=== PATIENT | female | born 1925 | race Caucasian/White ===

== ENCOUNTER 2016-08-05 11:09 | Observation (INO) | payer MEDICARE ==
[2016-08-05] VITALS (9 sets, daily range): BP systolic 158–199; BP diastolic 63–104; PULSE 60–77; RESP 16–24; TEMP 97.7–98.6; O2SAT 93–98
[~2016-08-05] VITALS: Ht 154.9 cm; Wt 81.9 kg
[~2016-08-05 11:09] MED LIST: ASPI1TAB69 PO; ATOR40TA16 PO; CARV12.5 PO; CLOP75TA PO; FURO40TA PO; ISOS60TA PO; NITR0.4S SL; OMEGCAP PO; POTA-163 PO; PREV30CA11 PO
[2016-08-05] MEDS ORDERED: RESP: ALBUTEROL 2.5 MG/IPRATROPIUM 0.5 MG NEB (SCH) INH ONE (11:30)
[2016-08-05] MEDS ORDERED: methylPREDNISolone SOD SUCC 125 MG/2 ML VIAL IVP ONE (11:30)
--- NOTE | 2016-08-05 11:49 | PD ---
HPI Chief Complaint: Respiratory Symptoms Time Seen by Provider: 11:46 Travel History International Travel<30 days: No Contact w/Intl Traveler<30days: No Traveled to known affect area: No History of Present Illness HPI 89-year-old female that presents to the ED for evaluation of respiratory symptoms. Per patient she's been having cough and congestion as well as generalized weakness worse for the past 3 days but per family members she's had it for about a week. She states that she is coughing up green sputum. She denies any sick contacts. She does have a history of COPD and pneumonia in the past. She also uses inhalers. She has a history of heart disease. She states having some chest pressure on her chest. Denies any recent travel. No abdominal pain. Nausea or vomiting. No bowel movement or urinary issues. Per patient she has congestion in her face as well. Per family members she initially stated that she had weakness of her legs and that is when all the symptoms started. She apparently went to an urgent care and was given azithromycin with minimal relief. PFSH Past Medical History Hx Anticoagulant Therapy: Yes Arthritis: Yes Asthma: No Autoimmune Disease: No Anxiety: No Depression: No Heart Rhythm Problems: Yes (av block) Cancer: No Cardiac Catheterization: Yes (2013) Cardiovascular Problems: Yes High Cholesterol: Yes Chest Pain: Yes COPD: No Cerebrovascular Accident: No Coronary Artery Disease: Yes Diminished Hearing: Yes Endocrine: No Gastrointestinal Disorders: Yes (PT STATE THAT SHE HAS REFLUX) GERD: Yes Glaucoma: No Genitourinary: Yes (urgency) Headaches: Yes Hepatitis: No Hiatal Hernia: Yes Hypertension: Yes Immune Disorder: No Medical other: Yes (REFLUX) Musculoskeletal: Yes Neurologic: Yes Psychiatric: No Reproductive: No Respiratory: Yes (copd) Immunizations Current: Yes Migraines: No Myocardial Infarction: Yes Renal Failure: No Seizures: No Sleep Apnea: No Thyroid Disease: No Ulcer: No Menopausal: Yes Past Surgical History Abdominal Surgery: No Cardiac Surgery: Yes (stent x 2.) Coronary Artery Bypass Graft: No Coronary Stent: Yes (X 2 ON 01/12/14) Ear Surgery: No Endocrine Surgery: No Eye Surgery: Yes (BILAT CATARACTS) Genitourinary Surgery: No Gynecologic Surgery: Yes (HYSTERECTOMY) Hysterectomy: Yes Oral Surgery: Yes Thoracic Surgery: No Other Surgery: Yes Family History Family Myocardial Infarction: Yes Social History Alcohol Use: No Tobacco Use: No Substance Use: No Allergies-Medications (Allergen,Severity, Reaction): Coded Allergies: Egg Allergy (Verified Allergy, Severe, DEATHLY ILL, 01/23/16) Adhesives (Verified Allergy, Intermediate, RASH;REDNESS, 01/23/16) Percocet (Verified Adverse Reaction, Intermediate, VOMITING, 01/23/16) Levaquin (Verified Adverse Reaction, Mild, 01/23/16) Lansoprazole (Verified Adverse Reaction, Unknown, DIZZINESS, 01/23/16) Reported Meds & Prescriptions Reported Meds & Active Scripts Active Isosorbide Mononitrate ER (Isosorbide Mononitrate) 60 Mg Tab 60 Mg PO DAILY@0700 Reported Clopidogrel (Clopidogrel Bisulfate) 75 Mg Tab 75 Mg PO DAILY Potassium Chloride ER (Potassium Chloride) 20 Meq Tab 20 Meq PO DAILY [place]-3 Fish Oil/Vitamin (Fish Oil-Cholecalciferol) 1,000-1,000 Mg Cap 1 Cap PO DAILY Prevacid (Lansoprazole) 30 Mg Capdr 30 Mg PO BID Furosemide 40 Mg Tab 40 Mg PO DAILY Coreg (Carvedilol) 12.5 Mg Tab 12.5 Mg PO BID Atorvastatin (Atorvastatin Calcium) 40 Mg Tab 40 Mg PO HS Aspirin 81 Mg Tabdr 81 Mg PO DAILY Nitrostat SL (Nitroglycerin) 0.4 Mg Subl 0.4 Mg SL DIRECTED PRN ONE TABLET UNDER THE TONGUE NEEDED FOR CHEST PAIN, MAY REPEAT EVERY FIVE MINUTES FOR A TOTAL OF 3 DOSES OR CALL 911 IF NO RELIEF Review of Systems Except as stated in HPI: all other systems reviewed are Neg Physical Exam Narrative GENERAL: Well-nourished, well-developed patient in no apparent distress. SKIN: Warm and dry. HEAD: Atraumatic. Normocephalic. EYES: Pupils equal and round reactive to light and accommodation. No scleral icterus. No injection or drainage. ENT: No nasal bleeding or discharge. Mucous membranes pink and moist. TMs are clear with no sign of infection or perforation. No mastoid tenderness. Ear canals are intact bilaterally. No lymphadenopathy. Nostril mucosa is red and moist with clear mucus noted. No sinus tenderness to palpation noted. Tonsils are not enlarged or swollen. No ulvua Deviation. Tongue is midline. NECK: Trachea midline. No JVD. No meningeal signs noted CARDIOVASCULAR: Regular rate and rhythm. RESPIRATORY: No accessory muscle use. Wheezings heard in the lower lung landa. Breath sounds equal bilaterally. GASTROINTESTINAL: Abdomen soft, non-tender, nondistended. Hepatic and splenic margins not palpable. MUSCULOSKELETAL: Extremities without clubbing, cyanosis, or edema. No obvious deformities. NEUROLOGICAL: Awake and alert. No obvious cranial nerve deficits. Motor grossly within normal limits. Five out of 5 muscle strength in the arms and legs. Normal speech. PSYCHIATRIC: Appropriate mood and affect; insight and judgment normal. Data Data Last Documented VS Vital Signs Date Time Temp Pulse Resp B/P Pulse Ox O2 Delivery O2 Flow Rate FiO2 08/05/16 11:44 95 21 08/05/16 11:33 65 20 Room Air 08/05/16 11:10 98.6 158/63 Orders Electrocardiogram (08/05/16 11:24) Complete Blood Count With Diff (08/05/16 11:24) Basic Metabolic Panel (Bmp) (08/05/16 11:24) Troponin I (08/05/16 11:24) B-Type Natriuretic Peptide (08/05/16 11:24) Blood Culture (08/05/16 11:24) Urinalysis - C+S If Indicated (08/05/16 11:24) Magnesium (Mg) (08/05/16 11:24) Chest, Single Ap (08/05/16 11:24) Iv Access Insert/Monitor (08/05/16 11:24) Ecg Monitoring (08/05/16 11:24) Oximetry (08/05/16 11:24) Influenzae A/B Antigen (08/05/16 11:24) Lactic Acid (08/05/16 11:24) Methylprednisolone So Succ Inj (Solumedr (08/05/16 11:30) Albuterol-Ipratropium Neb (Duoneb Neb) (08/05/16 11:30) Sodium Chlorid 0.9% 500 Ml Inj (Ns 500 M (08/05/16 13:00) Ceftriaxone Inj (Rocephin Inj) (08/05/16 12:47) Azithromycin Inj (Zithromax Inj) (08/05/16 12:47) Lactic Acid Sepsis Protocol (08/05/16 12:47) Place In Observation (08/05/16 ) Code Status (08/05/16 13:07) Vital Signs (Adult) Q4H (08/05/16 13:07) Activity Oob With Assistance (08/05/16 13:07) Program Director/Traffic Director / Telemetry .CONTINUOUS (08/05/16 13:07) Diet Heart Healthy (08/05/16 Lunch) Sodium Chloride 0.9% Flush (Ns Flush) (08/05/16 13:15) Sodium Chloride 0.9% Flush (Ns Flush) (08/05/16 21:00) Acetaminophen (Tylenol) (08/05/16 13:15) Ondansetron Inj (Zofran Inj) (08/05/16 13:15) Temazepam (Restoril) (08/05/16 13:15) Basic Metabolic Panel (Bmp) (08/06/16 06:00) Complete Blood Count With Diff (08/06/16 06:00) Pt Request For Service (08/05/16 13:07) Scd Bilateral/Knee High MARIA ELENA.BID (08/05/16 13:07) Naloxone Inj (Narcan Inj) (08/05/16 13:15) Magnesium Hydroxide Liq (Milk Of Magnesi (08/05/16 13:15) Albuterol-Ipratropium Neb (Duoneb Neb) (08/05/16 14:00) Albuterol-Ipratropium Neb (Duoneb Neb) (08/05/16 13:15) Ceftriaxone Inj (Rocephin Inj) (08/06/16 13:00) Azithromycin (Zithromax) (08/06/16 13:00) 1/2 Ns + Kcl 20 Meq Inj (1/2 Ns + Kcl 20 (08/05/16 15:00) Aspirin (Aspirin) (08/05/16 13:15) Nitroglycerin Sl (Nitrostat Sl) (08/05/16 13:15) Creatine Kinase (Cpk) (08/05/16 17:00) Creatine Kinase (Cpk) (08/05/16 23:00) Troponin I (08/05/16 17:00) Troponin I (08/05/16 23:00) Magnesium (Mg) (08/05/16 13:12) Electrocardiogram (08/05/16 17:00) Electrocardiogram (08/05/16 23:00) Scd Bilateral/Knee High MARIA ELENA.BID (08/05/16 13:12) Admit Order (Ed Use Only) (08/05/16 13:23) Labs Laboratory Tests Test 08/05/16 11:35 White Blood Count 6.8 TH/MM3 Red Blood Count 4.29 MIL/MM3 Hemoglobin 13.6 GM/DL Hematocrit 39.0 % Mean Corpuscular Volume 90.8 FL Mean Corpuscular Hemoglobin 31.6 PG Mean Corpuscular Hemoglobin 34.8 % Concent Red Cell Distribution Width 13.4 % Platelet Count 204 TH/MM3 Mean Platelet Volume 7.7 FL Neutrophils (%) (Auto) 67.1 % Lymphocytes (%) (Auto) 20.4 % Monocytes (%) (Auto) 6.1 % Eosinophils (%) (Auto) 5.7 % Basophils (%) (Auto) 0.7 % Neutrophils # (Auto) 4.5 TH/MM3 Lymphocytes # (Auto) 1.4 TH/MM3 Monocytes # (Auto) 0.4 TH/MM3 Eosinophils # (Auto) 0.4 TH/MM3 Basophils # (Auto) 0.0 TH/MM3 CBC Comment DIFF FINAL Differential Comment Sodium Level 142 MEQ/L Potassium Level 4.4 MEQ/L Chloride Level 107 MEQ/L Carbon Dioxide Level 25.9 MEQ/L Anion Gap 9 MEQ/L Blood Urea Nitrogen 13 MG/DL Creatinine 1.00 MG/DL Estimat Glomerular Filtration 52 ML/MIN Rate Random Glucose 221 MG/DL Lactic Acid Level 2.6 mmol/L Calcium Level 8.6 MG/DL Magnesium Level 2.0 MG/DL Troponin I LESS THAN 0.02 NG/ML B-Type Natriuretic Peptide 118 PG/ML MDM Medical Decision Making Medical Screen Exam Complete: Yes Emergency Medical Condition: Yes Medical Record Reviewed: Yes Interpretation(s) CBC & BMP Diagram 08/05/16 11:35 Last Impressions Chest X-Ray 08/05/16 1124 Signed Impressions: Service Date/Time: Friday, August 05, 2016 11:38 - CONCLUSION: No acute cardiopulmonary abnormality is identified. Deacon Hensley MD lactic acid of 2.6 EKG shows sinus rhythm with no sign of acute ischemia. Patient does have a bradycardia with first-degree AV block. Read by me and attending. BNP in the 100s. Troponin negative. Differential Diagnosis Pneumonia versus sinusitis versus upper respiratory infection versus sepsis versus CHF versus COPD exacerbation Narrative Course 89-year-old female that presents to the ED for evaluation of respiratory distress. Patient was properly examined and was found to have signs and symptoms consistent with appears to be respiratory infection vs CHF. Labs and imaging showed essentially unremarkable other than for a lactic acid of 2.6. Most of the patient's symptoms appear to be from the upper respiratory infection. Cannot completely rule out pneumonia. Especially because of patient 's elevated lactic acid. This was discussed in my attending Dr Mcguire who agrees with plan. Recommendations for admission for IV antibiotics and IV hydration. Patient was ordered IV fluids however only gave her 500 mL secondary to her history of CHF. [facility] was contacted and Dr. Mcqueen agreed to admission. Diagnosis Primary Impression: Respiratory infection Additional Impressions: Chest pain Qualified Code: R07.9 - Chest pain, unspecified type Lactic acid acidosis Admitting Information Admitting Physician Requests: Efrem Longoria August 05, 2016 11:49
--- NOTE | 2016-08-05 11:55 | RADRPT ---
EXAM DATE/TIME: 08/05/2016 11:38 [place] COMPARISON: CHEST SINGLE AP, January 23, 2016, 16:12. INDICATIONS : Chest pain MEDICAL HISTORY : Hypertension. SURGICAL HISTORY : Cardiac stents ENCOUNTER: Initial ACUITY: 3 days PAIN SCORE: 6/10 LOCATION: Bilateral chest FINDINGS: Portable AP view of the chest demonstrates a normal-sized cardiac silhouette. No effusion, consolidat ion, or pneumothorax is visualized. The bones and soft tissues demonstrate no acute abnormality. CONCLUSION: No acute cardiopulmonary abnormality is identified. Deacon Hensley MD on August 05, 2016 at 11:53 Board Certified Radiologist. This report was verified electronically.
[2016-08-05 12:06] LABS: AUTOMATED NEUTROPHIL # 4.5 TH/MM3 (1.8-7.7); BASOPHIL % 0.7 % (0.0-2.0); EOSINOPHIL # 0.4 TH/MM3 (0-0.4); EOSINOPHIL % 5.7 % (0.0-4.0); HEMO FLAGS DIFF FINAL; LYMPH % 20.4 % (9.0-44.0); LYMPHOCYTE # 1.4 TH/MM3 (1.0-4.8); MEAN CELL VOLUME 90.8 FL (80.0-100.0); MEAN CORPUSCULAR HEMOGLOBIN 31.6 PG (27.0-34.0); MEAN CORPUSCULAR HGB CONC 34.8 % (32.0-36.0); MONO % 6.1 % (0.0-8.0); NEUT % 67.1 % (16.0-70.0); PLATELET COUNT 204 TH/MM3 (150-450); RED BLOOD COUNT 4.29 MIL/MM3 (4.00-5.30); RED CELL DISTRIBUTION WIDTH 13.4 % (11.6-17.2); WHITE BLOOD COUNT 6.8 TH/MM3 (4.0-11.0)
[2016-08-05 12:33] LABS: ANION GAP 9 MEQ/L (5-15); BICARBONATE 25.9 MEQ/L (21.0-32.0); BLOOD UREA NITROGEN 13 MG/DL (7-18); CHLORIDE 107 MEQ/L (98-107); GLOMERULAR FILTRATION RATE 52 ML/MIN (>89); POTASSIUM 4.4 MEQ/L (3.5-5.1); SODIUM (NA) 142 MEQ/L (136-145)
[2016-08-05] MEDS ORDERED: AZITHROMYCIN INJ 500 MG in SODIUM CHLOR 0.9% 250 ML INJ 250 ML IV STA (12:47)
[2016-08-05] MEDS ORDERED: cefTRIAXone INJ 2,000 MG in SODIUM CHLORIDE 0.9% INJ 100 ML IV STA (12:47)
[2016-08-05] MEDS ORDERED: SODIUM CHLORID 0.9% 500 ML INJ 500 ML IV SCH (13:00)
[2016-08-05] MEDS ORDERED: RESP: ALBUTEROL 2.5 MG/IPRATROPIUM 0.5 MG NEB (PRN) NEB (13:15)
[2016-08-05] MEDS ORDERED: NITROGLYCERIN 0.4 MG SL 25 TABS/BTL SL PRN ×2 (13:15→14:30)
[2016-08-05] MEDS ORDERED: TEMAZEPAM 15 MG CAP PO PRN (13:15)
[2016-08-05] MEDS ORDERED: ONDANSETRON HCL 4 MG/2 ML VIAL IVP PRN (13:15)
[2016-08-05] MEDS ORDERED: MAGNESIUM HYDROXIDE SUSP 30 ML CUP PO PRN (13:15)
[2016-08-05] MEDS ORDERED: SODIUM CHLORIDE 0.9% FLUSH 10 ML FLUSH IV FLUSH PRN (13:15)
[2016-08-05] MEDS ORDERED: NALOXONE HCL 0.4 MG/ML AMP IV PRN (13:15)
[2016-08-05] MEDS: RESP: ALBUTEROL 2.5 MG/IPRATROPIUM 0.5 MG NEB (SCH) NEB ×2 (13:30→21:03)
[2016-08-05 14:03] LABS: BLOOD, URINE NEG (NEG); COMMENT (UR) CULT NOT INDICATED; CULTURE IF INDICATED CULT NOT INDICATED; GLUCOSE,URINE NEG (NEG); HYALINE CAST, URINE 3 /lpf (RARE); KETONE, URINE NEG (NEG); MUCUS URINE FEW /lpf (OCC); NITRITE,URINE NEG (NEG); SQUAMOUS EPITHELIAL CELL URINE <1 /hpf (0-5); URINE COLOR LIGHT-YELLOW (YELLW/STRAW)
--- NOTE | 2016-08-05 14:29 | HHI.HP ---
HPI Service [facility] Primary Care Physician Sharon Mosqueda Jr, MD Admission Diagnosis respiratory infection, lactic acidosis, chest pain Chief Complaint: cough Travel History International Travel<30 Days: No Contact w/Intl Traveler <30 Da: No Traveled to Known Affected Are: No Sepsis Criteria Sepsis Criteria (SIRS+source): Infect source susp/known Severe Sepsis (+one): Lactate >2 Criteria Outcome: Meets SIRS criteria History of Present Illness Patient is a pleasant 89-year-old female with medical history of coronary artery disease and STEMI in January 2014, unstable angina, diastolic dysfunction, hypertension, hyperlipidemia, GERD. Patient presented to the ER with complaint of coughing for the last week. Patient's cough is productive of green phlegm. Patient recently started azithromycin without improvement. Patient denies fever or chills. Patient's lactic acid was mildly elevated at 2.6. Review of Systems Constitutional: COMPLAINS OF: Fatigue, DENIES: Diaphoretic episodes, Fever, Weight gain, Weight loss, Chills, Dizziness, Change in appetite, Night Sweats Endocrine: DENIES: Heat/cold intolerance, Polydipsia, Polyuria, Polyphagia Eyes: DENIES: Blurred vision, Diplopia, Eye inflammation, Eye pain, Vision loss , Photosensitivity, Double Vision Ears, nose, mouth, throat: DENIES: Tinnitus, Hearing loss, Vertigo, Nasal discharge, Oral lesions, Throat pain, Hoarseness, Ear Pain, Running Nose, Epistaxis, Sinus Pain, Toothache, Odynophagia Respiratory: COMPLAINS OF: Cough, Sputum production, Shortness of breath, DENIES: Apneas, Snoring, Wheezing, Hemoptysis Cardiovascular: DENIES: Chest pain, Palpitations, Syncope, Dyspnea on Exertion , PND, Lower Extremity Edema, Orthopnea, Claudication Gastrointestinal: DENIES: Abdominal pain, Black stools, Bloody stools, BRB per rectum, Constipation, Diarrhea, GERD, Nausea, Reflux, Vomiting, Difficulty Swallowing, Anorexia Genitourinary: DENIES: Urinary frequency, Urinary incontinence, Urgency, Hematuria, Dysuria, Nocturia Musculoskeletal: DENIES: Joint pain, Muscle aches, Stiffness, Joint Swelling, Back pain, Neck pain Integumentary: DENIES: Abnormal pigmentation, Pruritus, Rash, Nail changes, Breast masses, Breast skin changes, Nipple discharge Hematologic/lymphatic: DENIES: Bruising, Lymphadenopathy Immunologic/allergic: DENIES: Eczema, Urticaria Neurologic: DENIES: Abnormal gait, Headache, Localized weakness, Paresthesias, Seizures, Speech Problems, Tremor, Poor Balance Psychiatric: DENIES: Anxiety, Confusion, Mood changes, Depression, Hallucinations, Agitation, Suicidal Ideation, Homicidal Ideation, Delusions, History of Bipolar, History of Schizophrenia Past Family Social History Past Medical History CAD with STEMI on 01/12/14 Unstable anginal HTN Hyperlipidemia GERD Diastolic dysfunction Past Surgical History PTCA with NICOLE placement to mid LAD on 02/01/14 and OM1 on 01/12/[address] Mcgrath Hysterectomy Cataract surgery Left third trigger finger release 05/2003 Right index finger trigger finger release 12/2009 Left partial meniscus removal 10/2006 Reported Medications Reported Meds & Active Scripts Active Isosorbide Mononitrate ER (Isosorbide Mononitrate) 60 Mg Tab 60 Mg PO DAILY@0700 Reported Clopidogrel (Clopidogrel Bisulfate) 75 Mg Tab 75 Mg PO DAILY Potassium Chloride ER (Potassium Chloride) 20 Meq Tab 20 Meq PO DAILY [place]-3 Fish Oil/Vitamin (Fish Oil-Cholecalciferol) 1,000-1,000 Mg Cap 1 Cap PO DAILY Prevacid (Lansoprazole) 30 Mg Capdr 30 Mg PO BID Furosemide 40 Mg Tab 40 Mg PO DAILY Coreg (Carvedilol) 12.5 Mg Tab 12.5 Mg PO BID Atorvastatin (Atorvastatin Calcium) 40 Mg Tab 40 Mg PO HS Aspirin 81 Mg Tabdr 81 Mg PO DAILY Nitrostat SL (Nitroglycerin) 0.4 Mg Subl 0.4 Mg SL DIRECTED PRN ONE TABLET UNDER THE TONGUE NEEDED FOR CHEST PAIN, MAY REPEAT EVERY FIVE MINUTES FOR A TOTAL OF 3 DOSES OR CALL 911 IF NO RELIEF Allergies: Coded Allergies: Egg Allergy (Verified Allergy, Severe, DEATHLY ILL, 01/23/16) Adhesives (Verified Allergy, Intermediate, RASH;REDNESS, 01/23/16) Percocet (Verified Adverse Reaction, Intermediate, VOMITING, 01/23/16) Levaquin (Verified Adverse Reaction, Mild, 01/23/16) Lansoprazole (Verified Adverse Reaction, Unknown, DIZZINESS, 01/23/16) Family History Noncontributory Social History - No tobacco use - No alcohol use - No illicit street drugs Physical Exam Vital Signs Vital Signs Date Time Temp Pulse Resp B/P Pulse Ox O2 Delivery O2 Flow Rate FiO2 08/05/16 11:44 95 21 08/05/16 11:33 65 20 96 Room Air 08/05/16 11:10 98.6 61 16 158/63 98 Physical Exam GENERAL: This is a well-nourished, well-developed patient, in no apparent distress. SKIN: No rashes, ecchymoses or lesions. Cool and dry. HEAD: Atraumatic. Normocephalic. No temporal or scalp tenderness. EYES: Pupils equal round and reactive. Extraocular motions intact. No scleral icterus. No injection or drainage. ENT: Nose without bleeding, purulent drainage or septal hematoma. Throat without erythema, tonsillar hypertrophy or exudate. Uvula midline. Airway patent. NECK: Trachea midline. No JVD or lymphadenopathy. Supple, nontender, no meningeal signs. CARDIOVASCULAR: Regular rate and rhythm without murmurs, gallops, or rubs. RESPIRATORY: Clear to auscultation. Breath sounds equal bilaterally. No wheezes , rales, or rhonchi. GASTROINTESTINAL: Abdomen soft, non-tender, nondistended. No hepato-splenomegaly , or palpable masses. No guarding. MUSCULOSKELETAL: Extremities without clubbing, cyanosis, or edema. No joint tenderness, effusion, or edema noted. No calf tenderness. Negative Homans sign bilaterally. NEUROLOGICAL: Awake and alert. Cranial nerves II through XII intact. Motor and sensory grossly within normal limits. Five out of 5 muscle strength in all muscle groups. Normal speech. Laboratory Laboratory Tests Test 08/05/16 08/05/16 11:35 12:50 White Blood Count 6.8 Red Blood Count 4.29 Hemoglobin 13.6 Hematocrit 39.0 Mean Corpuscular Volume 90.8 Mean Corpuscular Hemoglobin 31.6 Mean Corpuscular Hemoglobin 34.8 Concent Red Cell Distribution Width 13.4 Platelet Count 204 Mean Platelet Volume 7.7 Neutrophils (%) (Auto) 67.1 Lymphocytes (%) (Auto) 20.4 Monocytes (%) (Auto) 6.1 Eosinophils (%) (Auto) 5.7 Basophils (%) (Auto) 0.7 Neutrophils # (Auto) 4.5 Lymphocytes # (Auto) 1.4 Monocytes # (Auto) 0.4 Eosinophils # (Auto) 0.4 Basophils # (Auto) 0.0 CBC Comment DIFF FINAL Differential Comment Sodium Level 142 Potassium Level 4.4 Chloride Level 107 Carbon Dioxide Level 25.9 Anion Gap 9 Blood Urea Nitrogen 13 Creatinine 1.00 Estimat Glomerular Filtration 52 Rate Random Glucose 221 Lactic Acid Level 2.6 Calcium Level 8.6 Magnesium Level 2.0 Troponin I LESS THAN 0.02 B-Type Natriuretic Peptide 118 Urine Color LIGHT-YELLOW Urine Turbidity CLEAR Urine pH 5.0 Urine Specific [place] 1.008 Urine Protein NEG Urine Glucose (UA) NEG Urine Ketones NEG Urine Occult Blood NEG Urine Nitrite NEG Urine Bilirubin NEG Urine Urobilinogen LESS THAN 2.0 Urine Leukocyte Esterase NEG Urine WBC LESS THAN 1 Urine Squamous Epithelial <1 Cells Urine Hyaline Casts 3 Urine Mucus FEW Microscopic Urinalysis Comment CULT NOT INDICATED Date/Time Procedure Status Source Growth 08/05/16 13:15 Influenza Types A,B Antigen (MARLEEN) - Final Complete Nasal Washing NEGATIVE FOR FLU A AND B ANTIGEN.... 08/05/16 11:45 Aerobic Blood Culture Received Blood Peripheral Pending 08/05/16 11:45 Anaerobic Blood Culture Received Blood Peripheral Pending Result Diagram: 08/05/16 1135 08/05/16 1135 Imaging Last Impressions Chest X-Ray 08/05/16 1124 Signed Impressions: Service Date/Time: Friday, August 05, 2016 11:38 - CONCLUSION: No acute cardiopulmonary abnormality is identified. Deacon Hensley MD Septic Shock Reassessment Heart: Regular rate and rhythm Lungs: Clear Skin: Warm Peripheral Pulses: Bounding Right Radial Bounding Left Radial Bounding Right Popliteal Bounding Left Popliteal Bounding Right Dorsalis Pedis Bounding Left Dorsalis Pedis Bounding Right Posterior Tibial Bounding Left Posterior Tibial Capillary Refill: Brisk Assessment and Plan Problem List: (1) Pneumonia Status: Acute Plan: - Patient has had cough with productive green phlegm for the last week - Patient with worsening generalized fatigue - Although no fever, leukocytosis, or chest x-ray findings, patient appears to have pneumonia on a clinical basis - Lactic acid elevated on admission at 2.6 - Admit patient to observation status - Continue Rocephin and azithromycin - Nebulized DuoNeb treatments - Repeat chest x-ray in a.m. - Repeat lactic acid, CBC, chest x-ray in a.m. - Hopefully, patient will be stabilized for discharge tomorrow - Obtain physical therapy evaluation - IVFs - DVT prophylaxis (2) CAD (coronary artery disease) Status: Chronic Plan: - Pt c/o chest pain on admission - suspect this pleuritic d/t her coughing - initial cardiac enzymes were negative - obtain serial enzymes - obtain serial EKGs - coreg, ASA, plavix, lipitor (3) Diastolic dysfunction Status: Chronic Plan: - pt follows with Dr. Mcgrath - resume lasix/kcl in AM (4) GERD (gastroesophageal reflux disease) Status: Chronic Plan: - PPI (5) HTN (hypertension) Status: Chronic Plan: - COREG Problem Qualifiers (1) Pneumonia: Qualified Code: J18.9 - Pneumonia due to infectious organism, unspecified laterality, unspecified part of lung (2) CAD (coronary artery disease): Qualified Code: I25.10 - Coronary artery disease involving [place] heart without angina pectoris, unspecified vessel or lesion type (3) GERD (gastroesophageal reflux disease): Qualified Code: K21.9 - Gastroesophageal reflux disease, esophagitis presence not specified (4) HTN (hypertension): Qualified Code: I10 - Essential hypertension Wade Mcqueen DO August 05, 2016 14:29
[2016-08-05] MEDS: ASPIRIN 325 MG TAB PO SCH (14:41)
--- NOTE | 2016-08-05 14:54 | EKG ---
Date Performed: 08/05/2016 Time Performed: 12:23:30 PTAGE: 89 years EKG: SINUS BRADYCARDIA WITH FIRST DEGREE AV BLOCK MARKED LEFT AXIS DEVIATION PATTERN CONSISTENT WITH PULMONARY DISEASE MINIMAL VOLTAGE CRITERIA FOR LVH, CONSIDER NORMAL VARIANT MINIMAL ST DEPRESSIO N ABNORMAL ECG NO SIGNIFICANT CHANGE FROM PRIOR ELECTROCARDIOGRAM. PREVIOUS TRACING : 01/23/2016 22.24 DOCTOR: Omari Londono Interpretating Date/Time 08/05/2016 14:53:36
[2016-08-05] MEDS ORDERED: cloNIDine HCL 0.2 MG TAB PO PRN (15:00)
[2016-08-05] MEDS ORDERED: AZITHROMYCIN 250 MG TAB PO ONE (15:00)
[2016-08-05] MEDS ORDERED: ENALAPRILAT 1.25 MG/ML VIAL IV PRN (16:00)
[2016-08-05] MEDS: 1/2 NS + KCL 20 MEQ INJ 1,000 ML IV SCH (16:15)
[2016-08-05 17:02] LABS: CREATINE KINASE 204 U/L (26-192)
[2016-08-05 17:22] LABS: CKMB 0.9 NG/ML (0.5-3.6)
[2016-08-05] MEDS: ATORVASTATIN 40 MG TAB PO SCH (20:39)
[2016-08-05] MEDS: PANTOPRAZOLE SOD 20 MG DELAYED RELEASE TAB PO SCH (20:39)
[2016-08-05] MEDS: CARVEDILOL 12.5 MG TAB PO SCH (20:39)
[2016-08-05] MEDS: SODIUM CHLORIDE 0.9% FLUSH 10 ML FLUSH IV FLUSH SCH (20:39)
--- NOTE | 2016-08-05 21:23 | EKG ---
Date Performed: 08/05/2016 Time Performed: 20:25:02 PTAGE: 89 years EKG: Sinus rhythm WITH FIRST DEGREE AV BLOCK MARKED LEFT AXIS DEVIATION PATTERN CONSISTENT WITH PULMONARY DISEASE INCO MPLETE RIGHT BUNDLE BRANCH BLOCK ABNORMAL ECG NO SIGNIFICANT CHANGE FROM PRIOR ELECTROCARDIOGRAM. PREVIOUS TRACING : 08/05/2016 12.23 DOCTOR: Omari Londono Interpretating Date/Time 08/05/2016 21:21:35
[2016-08-06] VITALS (8 sets, daily range): BP systolic 104–143; BP diastolic 52–73; PULSE 61–89; RESP 18–20; TEMP 97.5–98; O2SAT 91–98
[2016-08-06 00:32] LABS: MAGNESIUM 1.9 MG/DL (1.5-2.5)
[2016-08-06 00:35] LABS: CREATINE KINASE 196 U/L (26-192)
[2016-08-06 00:48] LABS: CKMB 0.6 NG/ML (0.5-3.6)
[2016-08-06] MEDS: 1/2 NS + KCL 20 MEQ INJ 1,000 ML IV SCH (03:24)
[2016-08-06] MEDS: ISOSORBIDE MONONITRATE 60 MG TAB PO SCH (05:50)
[2016-08-06] MEDS: ACETAMINOPHEN 325 MG TAB PO PRN ×2 (08:27→20:27)
[2016-08-06] MEDS: CARVEDILOL 12.5 MG TAB PO SCH ×2 (08:27→20:16)
[2016-08-06] MEDS: CLOPIDOGREL 75 MG TAB PO SCH (08:27)
[2016-08-06] MEDS: POTASSIUM CHLORIDE 20 MEQ CONTROLLED RELEASE TAB PO SCH (08:27)
[2016-08-06] MEDS: FUROSEMIDE 40 MG TAB PO SCH (08:28)
[2016-08-06] MEDS: SODIUM CHLORIDE 0.9% FLUSH 10 ML FLUSH IV FLUSH SCH ×2 (08:28→20:15)
[2016-08-06] MEDS: ASPIRIN 325 MG TAB PO SCH (08:28)
[2016-08-06] MEDS: PANTOPRAZOLE SOD 20 MG DELAYED RELEASE TAB PO SCH ×2 (08:28→20:16)
[2016-08-06 08:35] LABS: AUTOMATED NEUTROPHIL # 10.3 TH/MM3 (1.8-7.7); BASOPHIL # 0.1 TH/MM3 (0-0.2); BASOPHIL % 0.6 % (0.0-2.0); HEMATOCRIT 34.8 % (35.0-46.0); LYMPH % 8.4 % (9.0-44.0); MEAN CORPUSCULAR HEMOGLOBIN 31.2 PG (27.0-34.0); MEAN CORPUSCULAR HGB CONC 34.7 % (32.0-36.0); MONO % 4.6 % (0.0-8.0); NEUT % 86.4 % (16.0-70.0); PLATELET COUNT 247 TH/MM3 (150-450); RED BLOOD COUNT 3.87 MIL/MM3 (4.00-5.30); RED CELL DISTRIBUTION WIDTH 13.5 % (11.6-17.2)
[2016-08-06 08:45] LABS: HEMO FLAGS AUTO DIFF
[2016-08-06 09:02] LABS: BICARBONATE 25.8 MEQ/L (21.0-32.0); POTASSIUM 4.4 MEQ/L (3.5-5.1)
[2016-08-06] MEDS: RESP: ALBUTEROL 2.5 MG/IPRATROPIUM 0.5 MG NEB (SCH) NEB ×3 (09:07→19:32)
--- NOTE | 2016-08-06 09:28 | HHI.PR ---
Subjective Remarks feels better. wants to go home. Objective Vitals heart reg lung good air entry abd s/nt ext no edema Vital Signs Date Time Temp Pulse Resp B/P Pulse Ox O2 Delivery O2 Flow Rate FiO2 08/06/16 08:00 98.0 70 20 106/57 93 08/06/16 03:45 97.7 74 20 135/73 91 08/05/16 23:00 97.9 77 16 163/69 93 08/05/16 22:00 168/83 08/05/16 21:08 94 21 08/05/16 20:25 97.7 73 24 189/84 97 08/05/16 20:25 199/83 08/05/16 20:00 72 08/05/16 16:00 97.9 66 20 184/87 94 08/05/16 15:20 60 16 158/104 98 08/05/16 11:44 95 21 08/05/16 11:33 65 20 96 Room Air 08/05/16 11:10 98.6 61 16 158/63 98 08/05/16 08/05/16 08/06/16 15:00 23:00 07:00 Intake Total 717 ml 993 ml Output Total 50 ml Balance 667 ml 993 ml Intake Oral 240 ml 360 ml IV Total 477 ml 633 ml Output Urine Total 50 ml # Voids 2 3 Result Diagram: 08/06/1682208/06/16 08 Imaging Last Impressions Chest X-Ray 08/05/16 1124 Signed Impressions: Service Date/Time: Friday, August 05, 2016 11:38 - CONCLUSION: No acute cardiopulmonary abnormality is identified. Deacon Hensley MD A/P Problem List: (1) Bronchitis Status: Acute Plan: persistent cough with green sputum and wheezing admitted for suspected bronchitis. no infiltrate on cxr. no fever. improving on abx and nebs/steroids If feels well later today consider d/c per pt wishes she wants regular food. family present. (2) CAD (coronary artery disease) Status: Chronic Plan: - Pt c/o chest pain on admission - suspect this pleuritic d/t her coughing - initial cardiac enzymes were negative - coreg, ASA, plavix, lipitor (3) Diastolic dysfunction Status: Chronic Plan: - pt follows with Dr. Mcgrath - resume lasix/kcl (4) GERD (gastroesophageal reflux disease) Status: Chronic Plan: - PPI (5) HTN (hypertension) Status: Chronic Plan: - COREG Problem Qualifiers (1) CAD (coronary artery disease): Qualified Code: I25.10 - Coronary artery disease involving [place] heart without angina pectoris, unspecified vessel or lesion type (2) GERD (gastroesophageal reflux disease): Qualified Code: K21.9 - Gastroesophageal reflux disease, esophagitis presence not specified (3) HTN (hypertension): Qualified Code: I10 - Essential hypertension Tomi Ji MD August 06, 2016 09:27
[2016-08-06 09:52] LABS: BANDS 7 % (0-6); MYELOCYTES 1 % (0-0); PLATELET ESTIMATE SMEAR NORMAL (NORMAL); PLATELET MORPHOLOGY NORMAL (NORMAL); POLYS (SEG NEUTROPHILS) 75 % (16-70); SCAN/DIFF FINAL DIFF MANUAL; WBC DIFF SAMPLE 100
[2016-08-06] MEDS ORDERED: methylPREDNISolone SOD SUCC 125 MG/2 ML VIAL IV PUSH ONE (10:00)
[2016-08-06] MEDS ORDERED: AZITHROMYCIN 250 MG TAB PO SCH (13:00)
[2016-08-06] MEDS ORDERED: cefTRIAXone INJ 1,000 MG in SODIUM CHLORIDE 0.9% INJ 100 ML IV SCH (13:00)
[2016-08-06] MEDS: ATORVASTATIN 40 MG TAB PO SCH (20:16)
[2016-08-07] VITALS: BP 133/60; PULSE 76; RESP 18; TEMP 97.5; O2SAT 95
[2016-08-07 04:00] VITALS: BP 141/60; PULSE 76; RESP 20; TEMP 98.1; O2SAT 94
[2016-08-07] MEDS: ISOSORBIDE MONONITRATE 60 MG TAB PO SCH (06:01)
[2016-08-07 08:00] VITALS: BP 139/62; PULSE 66; RESP 18; TEMP 98.1
[2016-08-07] MEDS: RESP: ALBUTEROL 2.5 MG/IPRATROPIUM 0.5 MG NEB (SCH) NEB (08:36)
[2016-08-07 08:37] VITALS: O2SAT 95
[2016-08-07 09:00] VITALS: PULSE 65
[2016-08-07] MEDS: SODIUM CHLORIDE 0.9% FLUSH 10 ML FLUSH IV FLUSH SCH (09:00)
[2016-08-07] MEDS: CLOPIDOGREL 75 MG TAB PO SCH (09:15)
[2016-08-07] MEDS: POTASSIUM CHLORIDE 20 MEQ CONTROLLED RELEASE TAB PO SCH (09:15)
[2016-08-07] MEDS: FUROSEMIDE 40 MG TAB PO SCH (09:15)
[2016-08-07] MEDS: PANTOPRAZOLE SOD 20 MG DELAYED RELEASE TAB PO SCH (09:16)
[2016-08-07] MEDS: CARVEDILOL 12.5 MG TAB PO SCH (09:16)
[2016-08-07] MEDS: ASPIRIN 325 MG TAB PO SCH (09:16)
--- NOTE | 2016-08-07 10:11 | HHI.PR ---
Subjective Remarks eager for d/c feels much better. Objective Vitals heart reg lung clear abd s/nt ext no edema Vital Signs Date Time Temp Pulse Resp B/P Pulse Ox O2 Delivery O2 Flow Rate FiO2 08/07/16 08:37 95 08/07/16 08:00 98.1 66 18 139/62 08/07/16 04:00 Room Air 08/07/16 04:00 98.1 76 20 141/60 94 08/07/16 00:00 Room Air 08/07/16 00:00 97.5 76 18 133/60 95 08/06/16 20:20 85 08/06/16 20:00 Room Air 08/06/16 20:00 97.5 89 18 105/52 94 08/06/16 19:32 98 21 08/06/16 16:00 97.9 69 20 143/62 93 08/06/16 12:00 97.6 61 20 104/57 95 08/06/16 12:00 121/58 08/06/16 08/06/16 08/07/16 15:00 23:00 07:00 Intake Total 918 ml 240 ml 0 ml Balance 918 ml 240 ml 0 ml Intake Oral 480 ml 240 ml 0 ml IV Total 438 ml # Voids 6 3 # Bowel Movements 0 0 Result Diagram: 08/06/16 0823 08/06/16 0823 Imaging Last Impressions Chest X-Ray 08/05/16 1124 Signed Impressions: Service Date/Time: Friday, August 05, 2016 11:38 - CONCLUSION: No acute cardiopulmonary abnormality is identified. Deacon Hensley MD A/P Problem List: (1) Bronchitis Status: Acute Plan: persistent cough with green sputum and wheezing admitted for suspected bronchitis. no infiltrate on cxr. no fever. improving on abx and nebs/steroids pt feels ready for d/c has f/u pcp next week. (2) CAD (coronary artery disease) Status: Chronic Plan: - Pt c/o chest pain on admission - suspect this pleuritic d/t her coughing - initial cardiac enzymes were negative - coreg, ASA, plavix, lipitor (3) Diastolic dysfunction Status: Chronic Plan: - pt follows with Dr. Mcgrath - resume lasix/kcl (4) GERD (gastroesophageal reflux disease) Status: Chronic Plan: - PPI (5) HTN (hypertension) Status: Chronic Plan: - COREG Problem Qualifiers (1) CAD (coronary artery disease): Qualified Code: I25.10 - Coronary artery disease involving chilkat heart without angina pectoris, unspecified vessel or lesion type (2) GERD (gastroesophageal reflux disease): Qualified Code: K21.9 - Gastroesophageal reflux disease, esophagitis presence not specified (3) HTN (hypertension): Qualified Code: I10 - Essential hypertension Tomi Ji MD August 07, 2016 10:11
[2016-08-07] MEDS ORDERED: PRED10 PO (10:15)
[2016-08-07] MEDS ORDERED: IPRA0.02 NEB (10:15)
[2016-08-07] MEDS ORDERED: ALBU0.08 NEB (10:15)
[2016-08-07] MEDS ORDERED: AUGM500T7 PO (10:15)
--- NOTE | 2016-08-07 10:15 | HHI.DCPOC ---
Discharge Care Plan Diagnosis: (1) Bronchitis (2) HTN (hypertension) (3) CAD (coronary artery disease) (4) Diastolic dysfunction Goals to Promote Your Health * To prevent worsening of your condition and complications * To maintain your health at the optimal level Directions to Meet Your Goals Take your medications as prescribed Follow your dietary instruction Follow activity as directed Keep your appointments as scheduled Take your immunizations and boosters as scheduled If your symptoms worsen call your PCP, if no PCP go to Urgent Care Center or Emergency Room Smoking is Dangerous to Your Health. Avoid second hand smoke Call the 24-hour hour crisis hotline for domestic abuse at Tomi Ji MD August 07, 2016 10:15
[2016-08-07] MEDS ORDERED: predniSONE 20 MG TAB PO ONE (10:30)
[2016-08-07] MEDS ORDERED: AMOXICILLIN/CLAVULANATE K 500 MG TAB PO ONE (10:30)
== END 2016-08-07 11:22 | disposition home or self-care (01) ==
LOC: NEPE 11:09 → NEDA 13:45 → N04A 16:09
PROVIDERS: ADMIT Hospitalist; ATTEND Hospitalist
DX: J44.0 Chronic obstructive pulmonary disease with (acute) lower respiratory infection (principal); J20.9 Acute bronchitis, unspecified; E87.2 Acidosis; I44.0 Atrioventricular block, first degree; R00.1 Bradycardia, unspecified; I25.10 Atherosclerotic heart disease of native coronary artery without angina pectoris; I11.0 Hypertensive heart disease with heart failure; I50.32 Chronic diastolic (congestive) heart failure; I45.10 Unspecified right bundle-branch block; I25.2 Old myocardial infarction; E78.5 Hyperlipidemia, unspecified; K21.9 Gastro-esophageal reflux disease without esophagitis; M19.90 Unspecified osteoarthritis, unspecified site; E78.00 Pure hypercholesterolemia, unspecified; K44.9 Diaphragmatic hernia without obstruction or gangrene; Z95.5 Presence of coronary angioplasty implant and graft; Z82.49 Family history of ischemic heart disease and other diseases of the circulatory system
CPT/HCPCS: 71010; 80048; 81001; 82550; 82552; 83605; 83735; 83880; 84484; 85007; 85025; 85027; 87040; 87449; 87804; 93005; 94640; 94664; 96365; 96375; 97162; 99285; G0378; G8987; G8988; J0456; J0696; J2930; J7040; J7050

== ENCOUNTER 2016-12-26 19:39 | Observation (INO) | payer MEDICARE ==
[~2016-12-26] VITALS: Ht 154.9 cm; Wt 78.0 kg
[~2016-12-26 19:39] MED LIST changes: +ALBU0.08 NEB; +AUGM500T7 PO; +IPRA0.02 NEB; +PRED10 PO
[2016-12-26 19:44] VITALS: BP 186/77; PULSE 53; RESP 16; TEMP 98.3; O2SAT 97
[2016-12-26 20:15] VITALS: PULSE 65; RESP 18; O2SAT 98
--- NOTE | 2016-12-26 20:27 | PD ---
HPI Chief Complaint: Chest Pain Time Seen by Provider: 20:26 Travel History International Travel<30 days: No Contact w/Intl Traveler<30days: No Traveled to known affect area: No History of Present Illness HPI 89-year-old female presents to the emergency department by private transportation for complaint of intermittent mid back pain 89 injury to her right shoulder and jaw typical of her previous angina. Patient's had symptoms intermittently since yesterday. Reportedly since this evening discomfort has been more persistent and rates discomfort 5/10 in intensity. Patient did take her evening medications including 1 low-dose 81 mg aspirin. No nitroglycerin administered. Patient has also had some shortness of breath and sweating no nausea or vomiting. Patient denies any referred pain to the chest or abdomen. No report of orthopnea or PND. Patient has prior history of CAD with cardiac catheterization and stent placement 2 hypertension and dyslipidemia. No tobacco use. Patient is not diabetic. Patient takes Plavix and aspirin daily. PFSH Past Medical History Narrative Medical CAD dyslipidemia hypertension AV block cardiac catheterization stent 2 Hx Anticoagulant Therapy: Yes Arthritis: Yes Asthma: No Autoimmune Disease: No Anxiety: No Depression: No Heart Rhythm Problems: Yes (av block) Cancer: No Cardiac Catheterization: Yes (2013) Cardiovascular Problems: Yes High Cholesterol: Yes Chest Pain: Yes COPD: Yes Cerebrovascular Accident: No Coronary Artery Disease: Yes Diminished Hearing: Yes Endocrine: No Gastrointestinal Disorders: Yes (GERD) GERD: Yes Glaucoma: No Genitourinary: Yes (urgency) Headaches: Yes Hepatitis: No Hiatal Hernia: Yes Hypertension: Yes Immune Disorder: No Musculoskeletal: Yes Neurologic: Yes Psychiatric: No Reproductive: No Respiratory: Yes (copd) Immunizations Current: Yes Migraines: No Myocardial Infarction: Yes Renal Failure: No Seizures: No Sleep Apnea: No Thyroid Disease: No Ulcer: No Tetanus Vaccination: Unknown Influenza Vaccination: No ?: Not Menopausal: Yes Past Surgical History Abdominal Surgery: No Cardiac Surgery: Yes (stent x 2.) Coronary Artery Bypass Graft: No Coronary Stent: Yes (X2 ON 01/12/14) Ear Surgery: No Endocrine Surgery: No Eye Surgery: Yes (BILAT CATARACTS) Genitourinary Surgery: No Gynecologic Surgery: Yes (HYSTERECTOMY) Hysterectomy: Yes Oral Surgery: Yes Thoracic Surgery: No Other Surgery: Yes Family History Family Myocardial Infarction: Yes Social History Alcohol Use: No Tobacco Use: No Substance Use: No Allergies-Medications (Allergen,Severity, Reaction): Coded Allergies: egg (Verified Allergy, Severe, DEATHLY ILL, 12/26/16) adhesive (Verified Allergy, Intermediate, RASH;REDNESS, 12/26/16) acetaminophen (Verified Adverse Reaction, Intermediate, VOMITING, 12/26/16 ) oxycodone (Verified Adverse Reaction, Intermediate, VOMITING, 12/26/16) levofloxacin (Verified Adverse Reaction, Mild, 12/26/16) lansoprazole (Verified Adverse Reaction, Unknown, DIZZINESS, 12/26/16) Reported Meds & Prescriptions Reported Meds & Active Scripts Active Reported Clopidogrel (Clopidogrel Bisulfate) 75 Mg Tab 75 Mg PO DAILY Potassium Chloride ER (Potassium Chloride) 20 Meq Tab 20 Meq PO DAILY [place]-3 Fish Oil/Vitamin (Fish Oil-Cholecalciferol) 1,000-1,000 Mg Cap 1 Cap PO DAILY Prevacid (Lansoprazole) 30 Mg Capdr 30 Mg PO BID Furosemide 40 Mg Tab 40 Mg PO DAILY Coreg (Carvedilol) 12.5 Mg Tab 12.5 Mg PO BID Atorvastatin (Atorvastatin Calcium) 40 Mg Tab 40 Mg PO HS Aspirin 81 Mg Tabdr 81 Mg PO DAILY Nitrostat SL (Nitroglycerin) 0.4 Mg Subl 0.4 Mg SL DIRECTED PRN ONE TABLET UNDER THE TONGUE NEEDED FOR CHEST PAIN, MAY REPEAT EVERY FIVE MINUTES FOR A TOTAL OF 3 DOSES OR CALL 911 IF NO RELIEF Review of Systems Except as stated in HPI: all other systems reviewed are Neg (Clinical) General / Constitutional: No: Fever, Chills HENT: No: Congestion Cardiovascular: Positive: Chest Pain or Discomfort, Diaphoresis Respiratory: No: Shortness of Breath Gastrointestinal: No: Nausea, Vomiting Genitourinary: No: Flank Pain Musculoskeletal: No: Myalgias, Arthralgias Skin: No Rash Neurologic: No: Weakness Psychiatric: No: Anxiety Hematologic/Lymphatic: No: Lymph Node Enlargement Physical Exam Narrative GENERAL: Well-developed well-nourished female in no acute distress no respiratory distress SKIN: Warm and dry. HEAD: Normocephalic. EYES: No scleral icterus. No injection or drainage. NECK: Supple, trachea midline. No JVD or lymphadenopathy. CARDIOVASCULAR: Regular rate and rhythm without murmurs, gallops, or rubs. RESPIRATORY: Breath sounds equal bilaterally. No accessory muscle use. GASTROINTESTINAL: Abdomen soft, non-tender, nondistended. MUSCULOSKELETAL: No cyanosis, or edema. BACK: Nontender without obvious deformity. No CVA tenderness. Data Data Last Documented VS Vital Signs Date Time Temp Pulse Resp B/P (MAP) Pulse Ox O2 Delivery O2 Flow Rate FiO2 12/26/16 20:29 12/26/16 20:28 99 Room Air 12/26/16 20:15 65 18 12/26/16 19:44 98.3 Orders Orders Electrocardiogram (12/26/16 ) Electrocardiogram (12/26/16 20:26) Basic Metabolic Panel (Bmp) (12/26/16 20:26) B-Type Natriuretic Peptide (12/26/16 20:26) Ckmb (Isoenzyme) Profile (12/26/16 20:) Complete Blood Count With Diff (12/26/16 20:) Magnesium (Mg) (12/26/16 20:26) Prothrombin Time / Inr (Pt) (12/26/16 20:26) Act Partial Throm Time (Ptt) (12/26/16 20:26) Troponin I (12/26/16 20:26) Chest, Single Ap (12/26/16 20:26) Ecg Monitoring (12/26/16 20:26) Bilateral Bp Monitoring (12/26/16 20:26) Iv Access Insert/Monitor (12/26/16 20:) Oximetry (12/26/16 20:26) Oxygen Administration (12/26/16 20:26) Aspirin Chew (Aspirin Chew) (12/26/16 20:30) Sodium Chloride 0.9% Flush (Ns Flush) (12/26/16 20:30) Nitroglycerin Sl (Nitrostat Sl) (12/26/16 20:30) Sodium Chlor 0.9% 1000 Ml Inj (Ns 1000 M (12/26/16 20:30) MDM Medical Decision Making Medical Screen Exam Complete: Yes Emergency Medical Condition: Yes Medical Record Reviewed: Yes Interpretation(s) EKG normal sinus rhythm first degree AV block rate 65 left axis deviation no acute ST elevation or injury pattern change or ectopy noted Differential Diagnosis Atypical chest pain, ACS, MN, aortic dissection, musculoskeletal pain Narrative Course Patient placed on bus monitor IV access obtained specimens collected and sent for resulting EKG shows sinus rhythm with first-degree AV block with left axis deviation no acute ST elevation or injury pattern change. Patient was administered aspirin 162 mg by mouth. Patient was given sublingual nitroglycerin. Astrid Elizalde MD Dec 26, 2016 20:27
[2016-12-26] MEDS ORDERED: SODIUM CHLORIDE 0.9% FLUSH 10 ML FLUSH IVF PRN (20:30)
[2016-12-26] MEDS ORDERED: ASPIRIN 81 MG CHEW TAB PO ONE (20:30)
[2016-12-26] MEDS: NITROGLYCERIN 0.4 MG SL 25 TABS/BTL SL SCH ×3 (20:35→20:52)
[2016-12-26] MEDS: SODIUM CHLOR 0.9% 1000 ML INJ 1,000 ML IV SCH (20:51)
[2016-12-26 20:56] LABS: AUTOMATED NEUTROPHIL # 5.2 TH/MM3 (1.8-7.7); BASOPHIL # 0.1 TH/MM3 (0-0.2); BASOPHIL % 0.8 % (0.0-2.0); EOSINOPHIL # 0.3 TH/MM3 (0-0.4); EOSINOPHIL % 3.6 % (0.0-4.0); HEMATOCRIT 41.7 % (35.0-46.0); HEMO FLAGS DIFF FINAL; LYMPH % 24.2 % (9.0-44.0); MEAN CELL VOLUME 90.6 FL (80.0-100.0); MEAN CORPUSCULAR HEMOGLOBIN 31.4 PG (27.0-34.0); MEAN CORPUSCULAR HGB CONC 34.6 % (32.0-36.0); MONO % 7.9 % (0.0-8.0); NEUT % 63.5 % (16.0-70.0); PLATELET COUNT 227 TH/MM3 (150-450); RED CELL DISTRIBUTION WIDTH 13.5 % (11.6-17.2); WHITE BLOOD COUNT 8.3 TH/MM3 (4.0-11.0)
[2016-12-26 21:09] LABS: PROTHROMBIN TIME - PATIENT 10.5 SEC (9.8-11.6)
[2016-12-26 21:10] LABS: APTT (PATIENT) 48.4 SEC (24.3-30.1)
--- NOTE | 2016-12-26 21:12 | RADRPT ---
EXAM DATE/TIME: 12/26/2016 20:43 [facility] COMPARISON: CHEST SINGLE AP, January 23, 2016, 16:12. CHEST SINGLE AP, August 05, 2016, 11:38. INDICATIONS : Chest pain. Short of breath. MEDICAL HISTORY : Hypertension. SURGICAL HISTORY : Cardiac stents. ENCOUNTER: Initial ACUITY: 1 day PAIN SCORE: 110 LOCATION: Bilateral chest FINDINGS: A single view of the chest demonstrates the lungs to be symmetrically aerated without evidence of mas s or effusion. The cardiomediastinal contours are unremarkable. Osseous structures are intact. Ther e is increased prominence of basilar interstitium relative to prior examinations with left ventricula r cardiomegaly. CONCLUSION: Increased prominence of basilar interstitium with left ventricular cardiomegaly which could represent either infiltrate minimal or early basilar atelectasis or atypical CHF. Florentino Clemens MD on December 26, 2016 at 21:09 Board Certified Radiologist. This report was verified electronically.
[2016-12-26 21:17] LABS: ANION GAP 7 MEQ/L (5-15); BLOOD UREA NITROGEN 16 MG/DL (7-18); CHLORIDE 104 MEQ/L (98-107); GLOMERULAR FILTRATION RATE 55 ML/MIN (>89); MAGNESIUM 1.9 MG/DL (1.5-2.5); POTASSIUM 4.2 MEQ/L (3.5-5.1); SODIUM (NA) 139 MEQ/L (136-145)
[2016-12-26 21:22] LABS: CREATINE KINASE 185 U/L (26-192)
[2016-12-26 21:34] LABS: CKMB LESS THAN 0.5 NG/ML (0.5-3.6)
[2016-12-26 22:13] VITALS: BP 144/98; PULSE 54; RESP 18; O2SAT 98
[2016-12-26] MEDS ORDERED: NITROGLYCERIN 0.4 MG SL 25 TABS/BTL SL PRN (23:00)
[2016-12-26] MEDS ORDERED: SODIUM CHLORIDE 0.9% FLUSH 10 ML FLUSH IV FLUSH PRN (23:00)
[2016-12-26] MEDS ORDERED: ONDANSETRON HCL 4 MG/2 ML VIAL IV PUSH PRN (23:00)
[2016-12-26 23:53] VITALS: O2SAT 98
[2016-12-27] VITALS (7 sets, daily range): BP systolic 135–173; BP diastolic 58–78; PULSE 55–75; RESP 20; TEMP 96.5–98; O2SAT 94–98
[2016-12-27 00:12] LABS: BACTERIA, URINE RARE /hpf; BLOOD, URINE NEG (NEG); COMMENT (UR) CULT NOT INDICATED; CULTURE IF INDICATED CULT NOT INDICATED; GLUCOSE,URINE NEG (NEG); KETONE, URINE NEG (NEG); NITRITE,URINE NEG (NEG); SQUAMOUS EPITHELIAL CELL URINE 1 /hpf (0-5); URINE COLOR LIGHT-YELLOW (YELLW/STRAW)
[2016-12-27 00:32] LABS: CREATINE KINASE 154 U/L (26-192)
[2016-12-27 00:45] LABS: CKMB 0.7 NG/ML (0.5-3.6)
[2016-12-27] MEDS: SODIUM CHLOR 0.9% 1000 ML INJ 1,000 ML IV SCH ×2 (01:16→16:30)
[2016-12-27 04:46] LABS: CREATINE KINASE 135 U/L (26-192)
[2016-12-27 04:59] LABS: CKMB 0.6 NG/ML (0.5-3.6)
[2016-12-27] MEDS ORDERED: SODIUM CHLORIDE 0.9% FLUSH 10 ML FLUSH IV FLUSH SCH (09:00)
[2016-12-27] MEDS ORDERED: TRAM50TA PO (10:44)
[2016-12-27] MEDS ORDERED: POTA10CA PO (10:44)
[2016-12-27] MEDS ORDERED: PANT40TA3 PO (10:44)
[2016-12-27] MEDS ORDERED: CLOPIDOGREL 75 MG TAB PO SCH (10:45)
[2016-12-27] MEDS ORDERED: CARVEDILOL 12.5 MG TAB PO SCH (10:45)
[2016-12-27] MEDS ORDERED: FUROSEMIDE 40 MG TAB PO SCH (10:45)
--- NOTE | 2016-12-27 11:54 | HHI.HP ---
[facility] Primary Care Physician Sharon Mosqueda Jr, MD Chief Complaint Chest pain History of Present Illness This is an 89-year-old female that presents to ED via private vehicle with her daughter with a clean of chest discomfort. She has history of CAD and was a STEMI alert in 2013 having a stent placed of LAD by Dr. donald. Still following Dr. donald,last visit was about a year ago. States that for the last few days she's been having a constant back discomfort that is similar to the discomfort that she has had when she had her stents in the past. Also complaining of similar jaw discomfort and arm discomfort. The back discomfort has been more constant however the jaw pain or pain seemed to be intermittent but really cannot describe how long they last. She has been short of breath and nauseous with them. No diaphoresis. Not take nitroglycerin home. She found nothing to worsen or improve her symptoms were to bring on the symptoms. Denies recent illness. Denies fevers or chills. She has not been coughing. Review of Systems General: Patient denies fevers, chills recent, and recent travel HEENT: Patient denies headache, sore throat, difficulty swallowing. Cardiovascular: Has the chest discomfort as mentioned above. Denies sensation of heart beating rapidly or irregularly. No syncope. Denies diaphoresis. Respiratory: She has been short of breath. Denies inspirational chest discomfort. Denies coughing wheezing or hemoptysis. GI: She has been nauseated. Patient denies vomiting, diarrhea, abdominal pain, bloody stools. Musculoskeletal: Patient denies joint pain or edema. Denies calf pain or edema. Neurovascular: Patient denies numbness, tingling, weakness in extremities. Denies headache. Endocrine: Denies polyuria and polydipsia. Hematologic: Denies easy bruising. Skin: Denies rash or itching. Past Family Social History Allergies: Coded Allergies: egg (Verified Allergy, Severe, DEATHLY ILL, 12/26/16) adhesive (Verified Allergy, Intermediate, RASH;REDNESS, 12/26/16) acetaminophen (Verified Adverse Reaction, Intermediate, VOMITING, 12/26/16 ) oxycodone (Verified Adverse Reaction, Intermediate, VOMITING, 12/26/16) levofloxacin (Verified Adverse Reaction, Mild, 12/26/16) lansoprazole (Verified Adverse Reaction, Unknown, DIZZINESS, 12/26/16) Past Medical History CAD with stents in the past. Hypertension and hyperlipidemia. Denies diabetes. Reported Medications Reported Meds & Active Scripts Active Reported Tramadol (Tramadol HCl) 50 Mg Tab 50 Mg PO Q8H PRN Potassium Chloride ER (Potassium Chloride) 10 Meq Cap 10 Meq PO DAILY Pantoprazole (Pantoprazole Sodium) 40 Mg Tab 40 Mg PO DAILY Clopidogrel (Clopidogrel Bisulfate) 75 Mg Tab 75 Mg PO DAILY Potassium Chloride ER (Potassium Chloride) 20 Meq Tab 20 Meq PO DAILY [place]-3 Fish Oil/Vitamin (Fish Oil-Cholecalciferol) 1,000-1,000 Mg Cap 1 Cap PO DAILY Furosemide 40 Mg Tab 40 Mg PO DAILY Coreg (Carvedilol) 12.5 Mg Tab 12.5 Mg PO BID Atorvastatin (Atorvastatin Calcium) 40 Mg Tab 40 Mg PO HS Aspirin 81 Mg Tabdr 81 Mg PO DAILY Nitrostat SL (Nitroglycerin) 0.4 Mg Subl 0.4 Mg SL DIRECTED PRN ONE TABLET UNDER THE TONGUE NEEDED FOR CHEST PAIN, MAY REPEAT EVERY FIVE MINUTES FOR A TOTAL OF 3 DOSES OR CALL 911 IF NO RELIEF Active Ordered Medications Current Medications Medications (Trade) Dose Ordered Sig/David Route Start Time Stop Time Status Last Admin Sodium Chloride 1,000 ml @ 100 mls/hr Q10H IV 12/26/16 20:30 12/27/16 01:16 (NS Flush) 2 ml UNSCH PRN IV FLUSH 12/26/16 23:00 (NS Flush) 2 ml BID IV FLUSH 12/27/16 09:00 (Zofran Inj) 4 mg Q6H PRN IV PUSH 12/26/16 23:00 (Nitrostat Sl) 0.4 mg Q5M PRN SL 12/26/16 23:00 (Lipitor) 40 mg HS PO 12/27/16 21:00 (Coreg) 12.5 mg BID PO 12/27/16 10:45 (Plavix) 75 mg DAILY PO 12/27/16 10:45 (Lasix) 40 mg DAILY PO 12/27/16 10:45 Family History There is family history of CAD. Social History Nonsmoker. Denies alcohol or illicit drugs. Physical Exam Vital Signs Vital Signs Date Time Temp Pulse Resp B/P (MAP) Pulse Ox O2 Delivery O2 Flow Rate FiO2 12/27/16 11:21 96.5 59 20 173/78 (109) 97 12/27/16 07:54 98.0 62 20 141/65 (90) 98 12/27/16 07:23 98 21 12/27/16 04:04 98.0 75 20 135/58 (83) 94 12/27/16 03:50 66 12/27/16 00:39 98.0 60 20 147/70 (95) 97 12/26/16 23:53 98 21 12/26/16 22:13 54 18 144/98 (113) 98 Room Air 12/26/16 20:29 12/26/16 20:28 99 Room Air 12/26/16 20:15 65 18 98 12/26/16 19:44 98.3 53 16 186/77 (113) 97 Room Air Physical Exam GENERAL: This is a well-nourished, well-developed patient, in no apparent distress. Patient speaks in clear complete sentences. Patient is pleasant. HEENT: Head is atraumatic and normocephalic. Neck is supple without lymphadenopathy and trachea is midline. No JVD or carotid bruits. CARDIOVASCULAR: Heart sounds are distant. Regular rate and rhythm without murmurs, gallops, or rubs. RESPIRATORY: Clear to auscultation. Breath sounds equal bilaterally. No wheezes , rales, or rhonchi. Chest wall is nontender. No use of accessory muscles. GASTROINTESTINAL: Abdomen is nontender, nondistended. Abdomen soft. No obvious pulsatile mass or bruit. No CVA tenderness. Strong femoral pulses bilaterally. Normal bowel sounds in all quadrants. MUSCULOSKELETAL: Patient is moving upper and lower extremities freely. No calf tenderness or edema, no Homans sign. Strong pulses in upper and lower extremities. NEUROLOGICAL: Patient is alert and oriented. Cranial nerves 2-12 are grossly intact. No focal deficits and speech is clear. SKIN: No rash and turgor is normal. Laboratory Laboratory Tests Test 12/26/16 20:30 12/26/16 23:43 12/26/16 23:56 12/27/16 04:02 White Blood Count 8.3 Red Blood Count 4.60 Hemoglobin 14.4 Hematocrit 41.7 Mean Corpuscular Volume 90.6 Mean Corpuscular Hemoglobin 31.4 Mean Corpuscular Hemoglobin Concent 34.6 Red Cell Distribution Width 13.5 Platelet Count 227 Mean Platelet Volume 7.8 Neutrophils (%) (Auto) 63.5 Lymphocytes (%) (Auto) 24.2 Monocytes (%) (Auto) 7.9 Eosinophils (%) (Auto) 3.6 Basophils (%) (Auto) 0.8 Neutrophils # (Auto) 5.2 Lymphocytes # (Auto) 2.0 Monocytes # (Auto) 0.7 Eosinophils # (Auto) 0.3 Basophils # (Auto) 0.1 CBC Comment DIFF FINAL Differential Comment Prothrombin Time 10.5 Prothromb Time International Ratio 1.0 Activated Partial Thromboplast Time 48.4 Blood Urea Nitrogen 16 Creatinine 0.96 Random Glucose 145 Calcium Level 9.0 Magnesium Level 1.9 Sodium Level 139 Potassium Level 4.2 Chloride Level 104 Carbon Dioxide Level 28.0 Anion Gap 7 Estimat Glomerular Filtration Rate 55 Total Creatine Kinase 185 154 135 Creatine Kinase MB LESS THAN 0.5 0.7 0.6 Troponin I LESS THAN 0.02 LESS THAN 0.02 LESS THAN 0.02 B-Type Natriuretic Peptide 45 Urine Color LIGHT-YELLOW Urine Turbidity CLEAR Urine pH 6.0 Urine Specific [place] 1.009 Urine Protein NEG Urine Glucose (UA) NEG Urine Ketones NEG Urine Occult Blood NEG Urine Nitrite NEG Urine Bilirubin NEG Urine Urobilinogen LESS THAN 2.0 Urine Leukocyte Esterase NEG Urine RBC LESS THAN 1 Urine WBC 1 Urine Squamous Epithelial Cells 1 Urine Bacteria RARE Microscopic Urinalysis Comment CULT NOT INDICATED Result Diagram: 12/26/16202912/26/162029 Imaging Last 48 hours Impressions Chest X-Ray 12/26/162025 Signed Impressions: Service Date/Time: Monday, December 26, 2016 20:43 - CONCLUSION: Increased prominence of basilar interstitium with left ventricular cardiomegaly which could represent either infiltrate minimal or early basilar atelectasis or atypical CHF. Florentino Clemens MD Course EKGs sinus bradycardia with first-degree AV block. Nonspecific ST changes laterally. Caprini VTE Risk Assessment Caprini VTE Risk Assessment: Mod/High Risk (score >= 2) Caprini Risk Assessment Model Point Value = 1 Point Value = 2 Point Value = 3 Point Value = 5 Age 41-60 Minor surgery BMI > 25 kg/m2 Swollen legs Varicose veins or History of unexplained or recurrent spontaneous Oral contraceptives or hormone replacement Sepsis (< 1 month) Serious lung disease, including pneumonia (< 1 month) Abnormal pulmonary function Acute myocardial infarction Congestive heart failure (< 1 month) History of inflammatory bowel disease Medical patient at bed rest Age 61-74 Arthroscopic surgery Major open surgery (> 45 min) Laparoscopic surgery (> 45 min) Malignancy Confined to bed (> 72 hours) Immobilizing plaster cast Central venous access Age >= 75 History of VTE Family history of VTE Factor V Leiden Prothrombin [id number] Lupus anticoagulant Anticardiolipin antibodies Elevated serum homocysteine Heparin-induced thrombocytopenia Other congenital or acquired thrombophilia Stroke (< 1 month) Elective arthroplasty Hip, pelvis, or leg fracture Acute spinal cord injury (< 1 month) Prophylaxis Regimen Total Risk Factor Score Risk Level Prophylaxis Regimen 0-1 Low Early ambulation 2 Moderate Order ONE of the following: *Sequential Compression Device (SCD) *Heparin 5000 units SQ BID 3-4 Higher Order ONE of the following medications: *Heparin 5000 units SQ TID *Enoxaparin/Lovenox 40 mg SQ daily (WT < 150 kg, CrCl > 30 mL/min) *Enoxaparin/Lovenox 30 mg SQ daily (WT < 150 kg, CrCl > 10-29 mL/min) *Enoxaparin/Lovenox 30 mg SQ BID (WT < 150 kg, CrCl > 30 mL/min) AND/OR *Sequential Compression Device (SCD) 5 or more Highest Order ONE of the following medications: *Heparin 5000 units SQ TID (Preferred with Epidurals) *Enoxaparin/Lovenox 40 mg SQ daily (WT < 150 kg, CrCl > 30 mL/min) *Enoxaparin/Lovenox 30 mg SQ daily (WT < 150 kg, CrCl > 10-29 mL/min) *Enoxaparin/Lovenox 30 mg SQ BID (WT < 150 kg, CrCl > 30 mL/min) AND *Sequential Compression Device (SCD) Assessment and Plan Assessment and Plan * Chest pain: Patient has had serial cardiac enzymes and EKGs for ruling out purposes. She will be seen by Dr. Dixon cardiology and the chest pain center. I have a call out to speak with Dr. donald to discuss this patient to help with further plan. * CAD: We'll reassess of his visit. She will need to follow-up with her engineer rf deployment. * Hypertension: Continue current medication. * Hyperlipidemia: Continue current medication. Patient is stable at this time. She is agreeable to this plan. Miguel Hill Dec 27, 2016 11:54
[2016-12-27] MEDS ORDERED: POTASSIUM CHLORIDE 10 MEQ CAP PO SCH (12:00)
[2016-12-27] MEDS ORDERED: PANTOPRAZOLE SOD 40 MG DELAYED RELEASE TAB PO SCH (12:00)
--- NOTE | 2016-12-27 13:31 | EKG ---
Date Performed: 12/27/2016 Time Performed: 04:15:32 PTAGE: 89 years EKG: SINUS BRADYCARDIA WITH FIRST DEGREE AV BLOCK MARKED LEFT AXIS DEVIATION INCOMPLETE RIGHT BU NDLE BRANCH BLOCK ABNORMAL ECG NO CHANGE PREVIOUS TRACING : 12/26/2016 23.39 DOCTOR: Gus Dixon Interpretating Date/Time 12/27/2016 13:30:27
--- NOTE | 2016-12-27 13:34 | EKG ---
Date Performed: 12/26/2016 Time Performed: 23:39:07 PTAGE: 89 years EKG: SINUS BRADYCARDIA WITH FIRST DEGREE AV BLOCK MARKED LEFT AXIS DEVIATION ABNORMAL ECG NO SIG CHANGE PREVIOUS TRACING : 12/26/2016 19.58 DOCTOR: Gus Dixon Interpretating Date/Time 12/27/2016 13:32:42
--- NOTE | 2016-12-27 13:35 | EKG ---
Date Performed: 12/26/2016 Time Performed: 19:58:12 PTAGE: 89 years EKG: Sinus rhythm WITH FIRST DEGREE AV BLOCK MARKED LEFT AXIS DEVIATION ABNORMAL ECG NO SIG CHANGE PREVIOUS TRACING : 08/05/2016 20.25 DOCTOR: Gus Dixon Interpretating Date/Time 12/27/2016 13:34:17
[2016-12-27] MEDS ORDERED: REGADENOSON INJ 0.4 MG/5 ML SYR ONE (15:01)
[2016-12-27] MEDS ORDERED: AMINOPHYLLINE INJ 250 MG/10 ML VIAL ONE (15:39)
--- NOTE | 2016-12-27 17:00 | HHI.DCPOC ---
Discharge Care Plan Diagnosis: (1) Chest pain (2) CAD (coronary artery disease) (3) H/O heart artery stent (4) Hypertension (5) Hyperlipidemia Goals to Promote Your Health * To prevent worsening of your condition and complications * To maintain your health at the optimal level Directions to Meet Your Goals Take your medications as prescribed Follow your dietary instruction Follow activity as directed Keep your appointments as scheduled Take your immunizations and boosters as scheduled If your symptoms worsen call your PCP, if no PCP go to Urgent Care Center or Emergency Room Smoking is Dangerous to Your Health. Avoid second hand smoke Call the 24-hour hour crisis hotline for domestic abuse at Miguel Hill Dec 27, 2016 17:00
--- NOTE | 2016-12-27 17:26 | RADRPT ---
EXAM DATE/TIME: 12/27/2016 14:24 [facility] COMPARISON: MYOCARDIAL PERF PHARM SPECT, GATED W/EF, August 03, 2015, 9:19. INDICATIONS : Chest pain. Angina. DOSE: 25.3 mCi Tc99m Myoview at stress. 8.4 mCi Tc99m Myoview at rest. 0.4 mg Lexiscan STRESS SYMPTOMS: Shortness of breath, chest pressure, stomach pain. EJECTION FRACTION: > 70% MEDICAL HISTORY : Chronic obstructive pulmonary disease. Congestive heart failure. Myocardial infarction. SURGICAL HISTORY : Total knee replacement, left. Rotator cuff, right. Hysterectomy. ENCOUNTER: Initial ACUITY: 2 days PAIN SCALE: 0/10 LOCATION: Substernal chest TECHNIQUE: The patient underwent pharmacologic stress with infusion of prescribed dose. Continuous ECG tracing was monitored during stress. Gated SPECT imaging was performed after stress and conventional SPECT i maging was performed at rest. The examination was performed on a SPECT/CT scanner, both attenuation and non-corrected datasets were reviewed. FINDINGS: DISTRIBUTION: The maximum perfused segment at stress is in the septal wall. PERFUSION STUDY: The pattern of perfusion at stress is within normal limits. No fixed or reversible perfusion defect i s identified. GATED STUDY: There is intact wall motion and thickening without hypokinetic or dyskinetic segments. CONCLUSION: 1. No fixed or reversible perfusion defect is identified. There are no findings to suggest stress-ind uced ischemia. 2. Normal left ventricle wall motion and ejection fraction. RISK CATEGORY: Low (<1% Annual Mortality Rate) Deacon Hensley MD on December 27, 2016 at 17:22 Board Certified Radiologist. This report was verified electronically.
[2016-12-27] MEDS ORDERED: ATORVASTATIN 40 MG TAB PO SCH (21:00)
[2016-12-28] MEDS ORDERED: ASPIRIN EC 81 MG TABEC PO SCH (09:00)
--- NOTE | 2016-12-28 13:57 | TR ---
Date Performed: 12/27/2016 Time Performed: 15:18:49 DOCTOR: Tomi Caldwell DRUG LIST: CLINICAL HISTORY: ANGINA REASON FOR TEST: REASON FOR ENDING: OBSERVATION: CONCLUSION: Lexiscan stress test was performed under standard four minute protocol. Radionuclid e was injected one minute prior to ending the test. No electrocardiographic abormalities were present to suggest ischemia. Nuclear imaging and interpretation are pending. COMMENTS:
== END 2016-12-27 18:06 | disposition home or self-care (01) ==
LOC: NEPC 19:39 → NEDA 23:01 → NEPFCDU 12-27 00:15
DX: R07.89 Other chest pain (principal); I25.10 Atherosclerotic heart disease of native coronary artery without angina pectoris; J44.9 Chronic obstructive pulmonary disease, unspecified; K21.9 Gastro-esophageal reflux disease without esophagitis; E78.00 Pure hypercholesterolemia, unspecified; I10 Essential (primary) hypertension; R00.1 Bradycardia, unspecified; I25.2 Old myocardial infarction; I44.0 Atrioventricular block, first degree; M19.90 Unspecified osteoarthritis, unspecified site; Z79.01 Long term (current) use of anticoagulants; Z79.82 Long term (current) use of aspirin; Z95.5 Presence of coronary angioplasty implant and graft; Z79.899 Other long term (current) drug therapy
CPT/HCPCS: 71010; 78452; 80048; 81001; 82550; 82552; 83735; 83880; 84484; 85025; 85610; 85730; 93005; 93017; 96360; 99285; A9502; G0378; J0280; J2785; J7030

== ENCOUNTER 2017-04-03 00:09 | Inpatient (IN) | payer MEDICARE ==
[~2017-04-03] VITALS: Ht 154.9 cm; Wt 80.0 kg
[2017-04-03] VITALS (10 sets, daily range): BP systolic 133–186; BP diastolic 60–98; PULSE 52–76; RESP 15–20; TEMP 97.2–98.3; O2SAT 95–97
[~2017-04-03 00:09] MED LIST changes: -ALBU0.08 NEB; -AUGM500T7 PO; -IPRA0.02 NEB; -ISOS60TA PO; +PANT40TA3 PO; -POTA-163 PO; +POTA10CA PO; -PRED10 PO; -PREV30CA11 PO; +TRAM50TA PO
--- NOTE | 2017-04-03 00:52 | PD ---
HPI Chief Complaint: Numbness/Tingling Time Seen by Provider: 00:27 Travel History International Travel<30 days: No Contact w/Intl Traveler<30days: No Traveled to known affect area: No History of Present Illness HPI The patient is an 89 year old female who presents to the [facility] emergency department with a history of numbness to the hand from the wrist all the way to the fingers and at glove distribution that reportedly began sometime in the afternoon today. She denies having any weakness of her arm associated with this. She reports having bilateral lower extremity weakness. She reports having a headache. She reports that the headache is across her forehead. She reports that she has nausea and dyspnea on exertion. Her daughter reports that 2 weeks ago she did fall on the carpeted floor in her home. They're unsure whether she hit her head. She did not have a loss of consciousness that she can recall. She denies having any numbness or tingling in any other location of her body. She denies having any chest pain or pressure. A review of systems otherwise, she denies having any recent fevers, cough, congestion, neck pain, abdominal pain, vomiting, diarrhea, urinary symptoms, or other neurologic symptoms. [facility] Past Medical History Narrative Medical The patient denies any past history of cerebrovascular accident, however she does have a history of coronary artery disease with stent placement, history of diastolic dysfunction, hypertension, hyperlipidemia, acid reflux. Hx Anticoagulant Therapy: Yes Arthritis: Yes Asthma: No Autoimmune Disease: No Anxiety: No Depression: No Heart Rhythm Problems: Yes (av block) Cancer: No Cardiac Catheterization: Yes (2013) Cardiovascular Problems: Yes High Cholesterol: Yes Chest Pain: Yes Congestive Heart Failure: Yes (family/patient unsure one doc said yes, one no) COPD: Yes Cerebrovascular Accident: No Coronary Artery Disease: Yes Diabetes: No Diminished Hearing: Yes Endocrine: No Gastrointestinal Disorders: Yes (GERD) GERD: Yes Glaucoma: No Genitourinary: Yes (urgency) Headaches: Yes Hepatitis: No Hiatal Hernia: Yes Hypertension: Yes Immune Disorder: No Medical other: Yes (REFLUX) Musculoskeletal: Yes Neurologic: Yes Psychiatric: No Reproductive: No Respiratory: Yes (copd) Immunizations Current: Yes Migraines: No Myocardial Infarction: Yes Renal Failure: No Seizures: No Sleep Apnea: No Thyroid Disease: No Ulcer: No Menopausal: Yes Past Surgical History Narrative Surgical The patient's past surgical history is significant for cardiac catheterization with stent placement, hysterectomy, cataract surgery, left third trigger finger release, right index finger trigger finger release, left partial meniscus removal. Surgical History: No Previous Surgery Abdominal Surgery: No Cardiac Surgery: Yes Coronary Artery Bypass Graft: No Coronary Stent: Yes (X2 ON 01/12/14) Ear Surgery: No Endocrine Surgery: No Eye Surgery: Yes (BILAT CATARACTS) Genitourinary Surgery: No Gynecologic Surgery: Yes Hysterectomy: Yes Oral Surgery: Yes Thoracic Surgery: No Other Surgery: Yes (BILAT percutaneous trigger finger release surgery) Family History Family Myocardial Infarction: Yes Social History Alcohol Use: No Tobacco Use: No Substance Use: No Allergies-Medications (Allergen,Severity, Reaction): Coded Allergies: egg (Verified Allergy, Severe, DEATHLY ILL, 04/03/17) adhesive (Verified Allergy, Intermediate, RASH;REDNESS, 04/03/17) acetaminophen (Verified Adverse Reaction, Intermediate, VOMITING, 12/26/16 ) oxycodone (Verified Adverse Reaction, Intermediate, VOMITING, 04/03/17) levofloxacin (Verified Adverse Reaction, Mild, 04/03/17) lansoprazole (Verified Adverse Reaction, Unknown, DIZZINESS, 04/03/17) Reported Meds & Prescriptions Reported Meds & Active Scripts Active Reported Tramadol (Tramadol HCl) 50 Mg Tab 50 Mg PO Q8H PRN Potassium Chloride ER (Potassium Chloride) 10 Meq Cap 10 Meq PO DAILY Pantoprazole (Pantoprazole Sodium) 40 Mg Tab 40 Mg PO DAILY Clopidogrel (Clopidogrel Bisulfate) 75 Mg Tab 75 Mg PO DAILY [place]-3 Fish Oil/Vitamin (Fish Oil-Cholecalciferol) 1,000-1,000 Mg Cap 1 Cap PO DAILY Furosemide 40 Mg Tab 40 Mg PO DAILY Coreg (Carvedilol) 12.5 Mg Tab 12.5 Mg PO BID Atorvastatin (Atorvastatin Calcium) 40 Mg Tab 40 Mg PO HS Nitrostat SL (Nitroglycerin) 0.4 Mg Subl 0.4 Mg SL DIRECTED PRN ONE TABLET UNDER THE TONGUE NEEDED FOR CHEST PAIN, MAY REPEAT EVERY FIVE MINUTES FOR A TOTAL OF 3 DOSES OR CALL 911 IF NO RELIEF Review of Systems Except as stated in HPI: all other systems reviewed are Neg General / Constitutional: No: Fever Eyes: No: Visual changes HENT: Positive: Headaches, No: Congestion, Neck Stiffness, Neck Pain Cardiovascular: Positive: Dyspnea on exertion, No: Chest Pain or Discomfort Respiratory: Positive: Shortness of Breath, No: Cough Gastrointestinal: Positive: Nausea, No: Vomiting, Diarrhea, Abdominal Pain Genitourinary: No: Dysuria Musculoskeletal: Positive: Myalgias, Arthralgias, No: Pain Skin: No Rash Neurologic: Positive: Weakness (lower extremity weakness), Headache, Sensory Disturbance (right hand), No: Focal Abnormalities, Change in Mentation, Slurred Speech Psychiatric: No: Depression Endocrine: No: Polydipsia Hematologic/Lymphatic: No: Easy Bruising Physical Exam Narrative General: The patient is a well-developed well-nourished female in no acute distress. Head and Neck exam: Head is normocephalic atraumatic. Eyes: EOMI, pupils are equal round and reactive to light. Nose: Midline septum with pink mucous membranes Mouth: Dentition unremarkable. Moist mucus membranes. Posterior oropharynx is not erythematous. No tonsillar hypertrophy. Uvula midline. Airway patent. Neck: No palpable lymphadenopathy. No nuchal rigidity. No thyromegaly. Cardiovascular: Regular rate and rhythm without murmurs, gallops, or rubs. Lungs: Clear to auscultation bilaterally. No wheezes, rhonchi, or rales. Abdomen: Soft, without tenderness to palpation in all 4 quadrants of the abdomen. No guarding, rebound, or rigidity. Normal bowel sounds are audible. No tenderness on palpation of McBurney's point. Extremities: No clubbing or cyanosis. The patient has trace pedal edema bilateral lower extremities. 2+ pulses in all 4 extremities. No calf tenderness on palpation. Back: No costovertebral angle tenderness to palpation. Neurologic Exam: Cranial nerves 2-12 were intact on exam. Strength is 4 over 5 in bilateral lower extremities, 5 over 5 in bilateral upper extremities. The patient on examination reports having numbness to the right hand involving the entire hand in a glove distribution. This seems to stop at the wrist and the patient after that has intact sensation over all dermatomes. Skin Exam: No rash noted. Intact skin that is warm and dry. Data Data Last Documented VS Vital Signs Date Time Temp Pulse Resp B/P (MAP) Pulse Ox O2 Delivery O2 Flow Rate FiO2 04/03/17 02:00 62 16 170/74 (106) 97 Room Air 04/03/17 00:[address] Cerv Spine W/O Contrast (04/03/17 00:34) Ct Brain W/O Iv Contrast(Rout) (04/03/17 00:34) Complete Blood Count With Diff (04/03/17 00:34) Comprehensive Metabolic Panel (04/03/17 00:34) Creatine Kinase (Cpk) (04/03/17 00:34) Ckmb (Isoenzyme) Profile (04/03/17 00:34) Troponin I (04/03/17 00:34) B-Type Natriuretic Peptide (04/03/17 00:34) Prothrombin Time / Inr (Pt) (04/03/17 00:34) Act Partial Throm Time (Ptt) (04/03/17 00:34) Lipase (04/03/17 00:34) Urinalysis - C+S If Indicated (04/03/17 00:34) Magnesium (Mg) (04/03/17 00:34) Chest, Single Ap (04/03/17 00:34) Iv Access Insert/Monitor (04/03/17 00:34) Ecg Monitoring (04/03/17 00:34) Oximetry (04/03/17 00:34) Electrocardiogram (04/03/17 ) CKMB (04/03/17 01:00) CKMB% (04/03/17 01:00) Admit Order (Ed Use Only) (04/03/17 03:23) Labs Laboratory Tests Test 04/03/17 01:00 04/03/17 02:15 White Blood Count 7.5 TH/MM3 Red Blood Count 4.21 MIL/MM3 Hemoglobin 13.4 GM/DL Hematocrit 38.7 % Mean Corpuscular Volume 92.0 FL Mean Corpuscular Hemoglobin 31.7 PG Mean Corpuscular Hemoglobin Concent 34.5 % Red Cell Distribution Width 14.0 % Platelet Count 221 TH/MM3 Mean Platelet Volume 7.3 FL Neutrophils (%) (Auto) 61.0 % Lymphocytes (%) (Auto) 26.3 % Monocytes (%) (Auto) 8.3 % Eosinophils (%) (Auto) 3.1 % Basophils (%) (Auto) 1.3 % Neutrophils # (Auto) 4.6 TH/MM3 Lymphocytes # (Auto) 2.0 TH/MM3 Monocytes # (Auto) 0.6 TH/MM3 Eosinophils # (Auto) 0.2 TH/MM3 Basophils # (Auto) 0.1 TH/MM3 CBC Comment DIFF FINAL Differential Comment Prothrombin Time 10.2 SEC Prothromb Time International Ratio 1.0 RATIO Activated Partial Thromboplast Time 47.9 SEC Blood Urea Nitrogen 18 MG/DL Creatinine 0.93 MG/DL Random Glucose 195 MG/DL Total Protein 6.8 GM/DL Albumin 3.7 GM/DL Calcium Level 8.6 MG/DL Magnesium Level 1.9 MG/DL Alkaline Phosphatase 111 U/L Aspartate Amino Transf (AST/SGOT) 12 U/L Alanine Aminotransferase (ALT/SGPT) 20 U/L Total Bilirubin 0.5 MG/DL Sodium Level 141 MEQ/L Potassium Level 4.0 MEQ/L Chloride Level 107 MEQ/L Carbon Dioxide Level 27.3 MEQ/L Anion Gap 7 MEQ/L Estimat Glomerular Filtration Rate 57 ML/MIN Total Creatine Kinase 150 U/L Creatine Kinase MB LESS THAN 0.5 NG/ML Troponin I LESS THAN 0.02 NG/ML B-Type Natriuretic Peptide 43 PG/ML Lipase 70 U/L Urine Color LIGHT-YELLOW Urine Turbidity CLEAR Urine pH 6.5 Urine Specific [place] 1.007 Urine Protein NEG mg/dL Urine Glucose (UA) NEG mg/dL Urine Ketones NEG mg/dL Urine Occult Blood NEG Urine Nitrite NEG Urine Bilirubin NEG Urine Urobilinogen LESS THAN 2.0 MG/DL Urine Leukocyte Esterase NEG Urine WBC LESS THAN 1 /hpf Urine Squamous Epithelial Cells 2 /hpf Urine Bacteria RARE /hpf Microscopic Urinalysis Comment CULT NOT INDICATED MDM Medical Decision Making Medical Screen Exam Complete: Yes Emergency Medical Condition: Yes Medical Record Reviewed: Yes Interpretation(s) Last Impressions Head CT 04/03/1733 Signed Impressions: Service Date/Time: Monday, April 03, 2017 00:43 - CONCLUSION: 1. No acute findings in the brain. 2. Stable moderate severity atrophy. Lorenzo Howe MD Chest X-Ray 04/03/1733 Signed Impressions: Service Date/Time: Monday, April 03, 2017 00:45 - CONCLUSION: The lungs are clear. Lorenzo Howe MD Cervical Spine CT 04/03/1733 Signed Impressions: Service Date/Time: Monday, April 03, 2017 00:43 - CONCLUSION: 1. 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 2. No evidence of fracture and no spondylolisthesis seen. Lorenzo Howe MD Differential Diagnosis Neuropathy, versus TIA, versus intracranial hemorrhage, versus cervical radiculopathy Narrative Course During the course of the patients emergency department visit, the patients history, examination, and differential diagnosis were reviewed with the patient. The patient was placed on a radiographer cardiac catheterization with oximetry and frequent blood pressure monitoring. The patient had IV access obtained and blood work sent for analysis. The patient had an EKG done on arrival. The patient's EKG reveals a sinus bradycardia with first-degree AV block, heart rate of 58, no acute ST segment elevation, T waves are inverted in V1, lead 3. The patient was given normal saline at 70 mL per hour. The patient reports that she already took her aspirin and Plavix today. The patients laboratory studies were reviewed and remarkable for a white count of 7.5, hemoglobin 13.4, platelets 221 with 8.3 monocytes, CMP is remarkable for glucose of 195, AST 12, cardiac enzymes within normal limits, BNP 43, lipase 70, PT 10.2, PTT 47.9, urinalysis unremarkable. Radiology studies were reviewed and remarkable for a chest x-ray that shows no acute cardio pulmonary disease, CT scan of the brain shows no acute abnormality , stable moderate severity atrophy, CT scan of the C-spine shows advanced discogenic degenerative changes and facet joint arthropathy with neural foraminal stenosis and osteophytes. No evidence of fracture and no spondylolisthesis seen. The patient's symptoms could be explained by a TIA versus CVA, and the patient has no prior history of stroke, the patient will be admitted for observation and TIA workup completed. The patients results were discussed with the patient, including the plan of care. I explained that further testing and/ or monitoring is indicated based on the patients history, examination, and/ or laboratory findings. Therefore, I recommended admission for additional evaluation. The patient expressed understanding and was agreeable with this plan. The patient was admitted to the hospital in stable condition and [facility] Phys[facility] Communication Physician Communication The patient's case including history, pertinent physical examination findings, and laboratory studies were discussed with Dr. Rae. It was agreed that the [facility] would [facility] Diagnosis Primary Impression: Numbness and tingling in right hand Additional Impression: Weakness of both legs Admitting Information Admitting Physician Requests: Observation Nila Gilbert MD Apr 03, 2017 00:52
--- NOTE | 2017-04-03 01:18 | RADRPT ---
EXAM DATE/TIME: 04/03/2017 00:45 [facility] COMPARISON: CHEST SINGLE AP, August 02, 2015, 19:32. CHEST SINGLE AP, January 23, 2016, 16:12. CHEST SINGLE AP, O ctober 2016, 20:43. INDICATIONS : Short of breath. MEDICAL HISTORY : Hypertension. SURGICAL HISTORY : Cardiac stents. ENCOUNTER: Initial ACUITY: 1 day PAIN SCORE: 0/10 LOCATION: Bilateral chest FINDINGS: A single view of the chest demonstrates the lungs to be symmetrically aerated without evidence of mas s, infiltrate or effusion. The cardiomediastinal contours are unremarkable. 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 CONCLUSION: The lungs are clear. Lorenzo Howe MD on April 03, 2017 at 1:16 Board Certified Radiologist. This report was verified electronically.
[2017-04-03 01:28] LABS: AUTOMATED NEUTROPHIL # 4.6 TH/MM3 (1.8-7.7); BASOPHIL # 0.1 TH/MM3 (0-0.2); BASOPHIL % 1.3 % (0.0-2.0); EOSINOPHIL # 0.2 TH/MM3 (0-0.4); EOSINOPHIL % 3.1 % (0.0-4.0); HEMATOCRIT 38.7 % (35.0-46.0); HEMOGLOBIN 13.4 GM/DL (11.6-15.3); LYMPH % 26.3 % (9.0-44.0); MEAN CORPUSCULAR HEMOGLOBIN 31.7 PG (27.0-34.0); MEAN CORPUSCULAR HGB CONC 34.5 % (32.0-36.0); MEAN PLATELET VOLUME 7.3 FL (7.0-11.0); MONO % 8.3 % (0.0-8.0); MONOCYTE # 0.6 TH/MM3 (0-0.9); PLATELET COUNT 221 TH/MM3 (150-450); RED BLOOD COUNT 4.21 MIL/MM3 (4.00-5.30); WHITE BLOOD COUNT 7.5 TH/MM3 (4.0-11.0)
--- NOTE | 2017-04-03 01:37 | RADRPT ---
EXAM DATE/TIME: 04/03/2017 00:43 [facility] COMPARISON: No previous studies available for comparison. INDICATIONS : Right hand numbness. RADIATION DOSE: 30.53 CTDIvol (mGy) MEDICAL HISTORY : Myocardial infarction. Congestive heart failure. Hypertension. SURGICAL HISTORY : None. ENCOUNTER: Initial ACUITY: 1 day PAIN SCALE: 0/10 LOCATION: Bilateral neck TECHNIQUE: Volumetric scanning of the cervical spine was performed. Multiplanar reconstructions in the sagittal, coronal and oblique axial planes were performed. Using automated exposure control and adjustment o f the mA and/or kV according to patient size, radiation dose was kept as low as reasonably achievable to obtain optimal diagnostic quality images. DICOM format image data is available electronically f or review and comparison. FINDINGS: There is normal alignment of the vertebral bodies of the cervical spine preservation of vertebral bod y height. There is sclerosis of the C6 and C7 vertebral bodies centered around a narrowed disc space characteristic of advanced degenerative changes. There is partially bridging anterior paravertebral ossification at C5-6 and C6-7 and small posterior osteophyte at the C5-6 level. Moderate severity f acet joint hypertrophy is present from C3-C6, more severe on the left than on the right no evidence o f locked or perched facets. Atlantoaxial articulation is intact. The spinous processes are intact. C2-C3: No fracture seen. The bony neural foramina are patent. C3-C4: No fracture seen. Asymmetric moderate severity bony neural frontal stenosis on the left side. C4-C5: No fracture seen. Asymmetric moderate severity bony neural foraminal stenosis on the left side. C5-C6: No fracture seen. Bilateral uncovertebral joint hypertrophy causes mild bilateral bony neural forami nal stenosis. C6-C7: No fracture seen. The bony neural foramina are patent. C7-T1: No fracture seen. The bony neural foramina are patent. CONCLUSION: 1. 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 2. No evidence of fracture and no spondylolisthesis seen. Lorenzo Howe MD on April 03, 2017 at 1:28 Board Certified Radiologist. This report was verified electronically.
--- NOTE | 2017-04-03 01:38 | RADRPT ---
EXAM DATE/TIME: 04/03/2017 00:43 [facility] COMPARISON: CT BRAIN W/O CONTRAST, August 14, 2014, 1:08. INDICATIONS : Right hand numbness. RADIATION DOSE: 69.15 CTDIvol (mGy) MEDICAL HISTORY : Myocardial infarction. Congestive heart failure. Hypertension. SURGICAL HISTORY : None. ENCOUNTER: Initial ACUITY: 1 day PAIN SCALE: 0/10 LOCATION: cranial TECHNIQUE: Multiple contiguous axial images were obtained of the head. Using automated exposure control and adj ustment of the mA and/or kV according to patient size, radiation dose was kept as low as reasonably a chievable to obtain optimal diagnostic quality images. DICOM format image data is available electro nically for review and comparison. FINDINGS: CEREBRUM: The ventricles and sulci are and basal cisterns are prominent, characteristic of moderate severity Ce ntral and cortical atrophy; overall very similar to prior CT in 2014.. No evidence of midline shift, mass lesion, hemorrhage or acute infarction. No extra-axial fluid collections are seen. POSTERIOR FOSSA: The cerebellum and brainstem are intact. The 4th ventricle is midline. The cerebellopontine angle i s unremarkable. EXTRACRANIAL: The visualized portion of the orbits is intact. SKULL: The calvaria is intact. No evidence of skull fracture. CONCLUSION: 1. No acute findings in the brain. 2. Stable moderate severity atrophy. Lorenzo Howe MD on April 03, 2017 at 1:35 Board Certified Radiologist. This report was verified electronically.
[2017-04-03 01:39] LABS: PROTHROMBIN TIME - PATIENT 10.2 SEC (9.8-11.6)
[2017-04-03 01:53] LABS: ALBUMIN 3.7 GM/DL (3.4-5.0); ALT (GPT) 20 U/L (10-53); AST (GOT) 12 U/L (15-37); BICARBONATE 27.3 MEQ/L (21.0-32.0); BLOOD UREA NITROGEN 18 MG/DL (7-18); CALCIUM 8.6 MG/DL (8.5-10.1); CHLORIDE 107 MEQ/L (98-107); CREATININE 0.93 MG/DL (0.50-1.00); GLOMERULAR FILTRATION RATE 57 ML/MIN (>89); GLUCOSE,RANDOM 195 MG/DL (74-106); MAGNESIUM 1.9 MG/DL (1.5-2.5); SODIUM (NA) 141 MEQ/L (136-145)
[2017-04-03 01:57] LABS: ALKALINE PHOSPHATASE 111 U/L (45-117); TOTAL BILIRUBIN ADULT 0.5 MG/DL (0.2-1.0); TOTAL PROTEIN 6.8 GM/DL (6.4-8.2); TROPONIN I LESS THAN 0.02 NG/ML (0.02-0.05)
[2017-04-03 02:39] LABS: BACTERIA, URINE RARE /hpf; BILIRUBIN, URINE NEG (NEG); BLOOD, URINE NEG (NEG); GLUCOSE,URINE NEG (NEG); KETONE, URINE NEG (NEG); NITRITE,URINE NEG (NEG); PH, URINE 6.5 (5.0-8.5); SQUAMOUS EPITHELIAL CELL URINE 2 /hpf (0-5); URINE COLOR LIGHT-YELLOW (YELLW/STRAW); URINE LEUKOCYTE ESTERASE NEG (NEG)
[2017-04-03] MEDS ORDERED: ACETAMINOPHEN 325 MG TAB PO PRN (08:00)
[2017-04-03] MEDS ORDERED: ONDANSETRON HCL 4 MG/2 ML VIAL IV PRN (08:00)
--- NOTE | 2017-04-03 08:05 | HHI.HP ---
HPI Service [facility] Hospitalists Primary Care Physician Sharon Mosqueda Jr, MD Admission Diagnosis TIA verus CVA Chief Complaint: Right hand numbness Travel History International Travel<30 Days: No Contact w/Intl Traveler <30 Da: No Traveled to Known Affected Are: No History of Present Illness Ms. Arroyo is an 89 y/o female with CAD/hx of [place], unstable angina, diastolic dysfunction, hypertension, hyperlipidemia, and GERD. She presented to the ED at [facility] on 04/03/17 with complaints of numbness to the right hand from the wrist all the way to the fingers in a glove distribution that reportedly began sometime in the afternoon yesterday. She denies having any weakness of her arm associated with this. She reports having bilateral lower extremity weakness which is a chronic and progressive problem. Pt states that she has fallen at home a few times recently and denies any LOC. She states that she uses a walker when ambulating in the house but occasionally her LE get weak and she falls to the ground. She denies any falls recently but pt has some memory issues and cannot say for sure when the last time she fell was. She reports having a headache yesterday across her forehead and in the back of her head but denies any dizziness, lightheadedness, palpitations, chest pain, SOB. She denies having any paresthesias in any other location of her body. The numbness in her right hand is still present. She states that she has not tried to pick anything up with that hand so she cannot report any specific weakness. Head CT in the ED was negative for any acute changes and only noted stable moderate severity atrophy. CT Neck noted advanced discogenic degenerative changes and facet joint hypertrophy with neural foraminal stenosis and osteophytes and no evidence of fracture and no spondylolisthesis seen. Review of Systems ROS Limitations: Poor Historian Constitutional: DENIES: Fever, Chills, Dizziness Eyes: DENIES: Vision loss Ears, nose, mouth, throat: DENIES: Tinnitus, Hearing loss, Vertigo Respiratory: DENIES: Cough, Shortness of breath Cardiovascular: DENIES: Chest pain, Palpitations, Dyspnea on Exertion, Lower Extremity Edema Gastrointestinal: DENIES: Abdominal pain, Diarrhea, GERD, Nausea, Vomiting Genitourinary: DENIES: Urinary frequency, Urinary incontinence Musculoskeletal: DENIES: Back pain, Neck pain Integumentary: DENIES: Rash Neurologic: COMPLAINS OF: Headache, Paresthesias, Poor Balance, DENIES: Localized weakness, Speech Problems Psychiatric: DENIES: Confusion Past Family Social History Past Medical History CAD with STEMI on 01/12/14 Unstable anginal HTN Hyperlipidemia GERD Diastolic dysfunction Past Surgical History PTCA with NICOLE placement to mid LAD on 02/01/14 and OM1 on 01/12/[address] Mcgrath Hysterectomy Cataract surgery Left third trigger finger release 05/2003 Right index finger trigger finger release 12/2009 Left partial meniscus removal 10/2006 Reported Medications -Tramadol 50 Mg PO Q8H PRN -Potassium Chloride ER 10 Meq PO DAILY -Pantoprazole 40 Mg PO DAILY -Clopidogrel 75 Mg PO DAILY -Prospect-3 Fish Oil/Vitamin 1,000-1,000 Mg Cap PO DAILY -Furosemide 40 Mg PO DAILY -Coreg 12.5 Mg PO BID -Atorvastatin 40 Mg PO HS -Nitrostat SL (Nitroglycerin) 0.4 Mg Subl 0.4 Mg SL DIRECTED PRN ONE TABLET UNDER THE TONGUE NEEDED FOR CHEST PAIN, MAY REPEAT EVERY FIVE MINUTES FOR A TOTAL OF 3 DOSES OR CALL 911 IF NO RELIEF Allergies: Coded Allergies: egg (Verified Allergy, Severe, DEATHLY ILL, 04/03/17) adhesive (Verified Allergy, Intermediate, RASH;REDNESS, 04/03/17) acetaminophen (Verified Adverse Reaction, Intermediate, VOMITING, 12/26/16 ) oxycodone (Verified Adverse Reaction, Intermediate, VOMITING, 04/03/17) levofloxacin (Verified Adverse Reaction, Mild, 04/03/17) lansoprazole (Verified Adverse Reaction, Unknown, DIZZINESS, 04/03/17) Family History Two sisters with hx of CVA Social History Denies any alcohol, tobacco or illicit drug use She lives with her daughter who helps care for her Pt uses a walker to help with ambulation but does not go outside the house without assistance Physical Exam Vital Signs Vital Signs Date Time Temp Pulse Resp B/P (MAP) Pulse Ox O2 Delivery O2 Flow Rate FiO2 04/03/17 07:26 62 20 140/98 (112) 97 Room Air 04/03/17 05:00 52 16 143/60 (87) 96 Room Air 04/03/17 02:00 62 16 170/74 (106) 97 Room Air 04/03/17 01:05 64 20 179/79 (112) 97 Room Air 04/03/17 00:11 98.3 59 18 133/98 (110) 96 Physical Exam GENERAL: This is a well-nourished, well-developed patient, in no apparent distress. HEENT: Atraumatic. Normocephalic. No temporal or scalp tenderness. No scleral icterus. Airway patent. NECK: Trachea midline, supple, nontender. CARDIO: Regular. RESP: CTA bilaterally. No wheezes, rales, or rhonchi. ABD: +BS, soft, non-tender, nondistended. EXT: Extremities without clubbing, cyanosis, or edema. NEURO: Awake and alert. Motor and sensory grossly within normal limits. Five out of 5 muscle strength in all muscle groups. Normal speech. Laboratory Laboratory Tests Test 04/03/17 01:00 04/03/17 02:15 White Blood Count 7.5 Red Blood Count 4.21 Hemoglobin 13.4 Hematocrit 38.7 Mean Corpuscular Volume 92.0 Mean Corpuscular Hemoglobin 31.7 Mean Corpuscular Hemoglobin Concent 34.5 Red Cell Distribution Width 14.0 Platelet Count 221 Mean Platelet Volume 7.3 Neutrophils (%) (Auto) 61.0 Lymphocytes (%) (Auto) 26.3 Monocytes (%) (Auto) 8.3 Eosinophils (%) (Auto) 3.1 Basophils (%) (Auto) 1.3 Neutrophils # (Auto) 4.6 Lymphocytes # (Auto) 2.0 Monocytes # (Auto) 0.6 Eosinophils # (Auto) 0.2 Basophils # (Auto) 0.1 CBC Comment DIFF FINAL Differential Comment Prothrombin Time 10.2 Prothromb Time International Ratio 1.0 Activated Partial Thromboplast Time 47.9 Blood Urea Nitrogen 18 Creatinine 0.93 Random Glucose 195 Total Protein 6.8 Albumin 3.7 Calcium Level 8.6 Magnesium Level 1.9 Alkaline Phosphatase 111 Aspartate Amino Transf (AST/SGOT) 12 Alanine Aminotransferase (ALT/SGPT) 20 Total Bilirubin 0.5 Sodium Level 141 Potassium Level 4.0 Chloride Level 107 Carbon Dioxide Level 27.3 Anion Gap 7 Estimat Glomerular Filtration Rate 57 Total Creatine Kinase 150 Creatine Kinase MB LESS THAN 0.5 Troponin I LESS THAN 0.02 B-Type Natriuretic Peptide 43 Lipase 70 Urine Color LIGHT-YELLOW Urine Turbidity CLEAR Urine pH 6.5 Urine Specific [place] 1.007 Urine Protein NEG Urine Glucose (UA) NEG Urine Ketones NEG Urine Occult Blood NEG Urine Nitrite NEG Urine Bilirubin NEG Urine Urobilinogen LESS THAN 2.0 Urine Leukocyte Esterase NEG Urine WBC LESS THAN 1 Urine Squamous Epithelial Cells 2 Urine Bacteria RARE Microscopic Urinalysis Comment CULT NOT INDICATED Result Diagram: 04/03/179904/03/1799 Imaging Last Impressions Head CT 04/03/1733 Signed Impressions: Service Date/Time: Monday, April 03, 2017 00:43 - CONCLUSION: 1. No acute findings in the brain. 2. Stable moderate severity atrophy. Lorenzo Howe MD Chest X-Ray 04/03/1733 Signed Impressions: Service Date/Time: Monday, April 03, 2017 00:45 - CONCLUSION: The lungs are clear. Lorenzo Howe MD Cervical Spine CT 04/03/1733 Signed Impressions: Service Date/Time: Monday, April 03, 2017 00:43 - CONCLUSION: 1. 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 2. No evidence of fracture and no spondylolisthesis seen. Lorenzo Howe MD Capmehrdadi VTE Risk Assessment Caprini VTE Risk Assessment: Mod/High Risk (score >= 2) Caprini Risk Assessment Model Point Value = 1 Point Value = 2 Point Value = 3 Point Value = 5 Age 41-60 Minor surgery BMI > 25 kg/m2 Swollen legs Varicose veins or History of unexplained or recurrent spontaneous Oral contraceptives or hormone replacement Sepsis (< 1 month) Serious lung disease, including pneumonia (< 1 month) Abnormal pulmonary function Acute myocardial infarction Congestive heart failure (< 1 month) History of inflammatory bowel disease Medical patient at bed rest Age 61-74 Arthroscopic surgery Major open surgery (> 45 min) Laparoscopic surgery (> 45 min) Malignancy Confined to bed (> 72 hours) Immobilizing plaster cast Central venous access Age >= 75 History of VTE Family history of VTE Factor V Leiden Prothrombin [id number] Lupus anticoagulant Anticardiolipin antibodies Elevated serum homocysteine Heparin-induced thrombocytopenia Other congenital or acquired thrombophilia Stroke (< 1 month) Elective arthroplasty Hip, pelvis, or leg fracture Acute spinal cord injury (< 1 month) Prophylaxis Regimen Total Risk Factor Score Risk Level Prophylaxis Regimen 0-1 Low Early ambulation 2 Moderate Order ONE of the following: *Sequential Compression Device (SCD) *Heparin 5000 units SQ BID 3-4 Higher Order ONE of the following medications: *Heparin 5000 units SQ TID *Enoxaparin/Lovenox 40 mg SQ daily (WT < 150 kg, CrCl > 30 mL/min) *Enoxaparin/Lovenox 30 mg SQ daily (WT < 150 kg, CrCl > 10-29 mL/min) *Enoxaparin/Lovenox 30 mg SQ BID (WT < 150 kg, CrCl > 30 mL/min) AND/OR *Sequential Compression Device (SCD) 5 or more Highest Order ONE of the following medications: *Heparin 5000 units SQ TID (Preferred with Epidurals) *Enoxaparin/Lovenox 40 mg SQ daily (WT < 150 kg, CrCl > 30 mL/min) *Enoxaparin/Lovenox 30 mg SQ daily (WT < 150 kg, CrCl > 10-29 mL/min) *Enoxaparin/Lovenox 30 mg SQ BID (WT < 150 kg, CrCl > 30 mL/min) AND *Sequential Compression Device (SCD) Assessment and Plan Problem List: (1) Numbness and tingling in right hand ICD Codes: R20.0 - Anesthesia of skin; R20.2 - Paresthesia of skin Status: Acute Plan: Right hand paresthesia r/o CVA - Pt is an 89 y/o female with CAD/hx of [place], unstable angina, diastolic dysfunction, hypertension, hyperlipidemia, and GERD. - She presented to the ED at [facility] on 04/03/17 with complaints of numbness to the right hand from the wrist all the way to the fingers in a glove distribution that reportedly began sometime in the afternoon yesterday. No reported weakness of her arm associated with this. She reports having a headache yesterday across her forehead and in the back of her head. - Head CT in the ED was negative for any acute changes and only noted stable moderate severity atrophy. - CT Neck noted advanced discogenic degenerative changes and facet joint hypertrophy with neural foraminal stenosis and osteophytes and no evidence of fracture and no spondylolisthesis seen. - Carotid US - MRI Brain - Telemetry - IVF - Allow BP to run higher for now and if MRI is negative then will resume BP medications - PT/OT evaluation - Supportive care LE weakness, chronic - She reports having bilateral lower extremity weakness which is a chronic and progressive problem. - Pt states that she has fallen at home a few times recently and denies any LOC. - She states that she uses a walker when ambulating in the house but occasionally her LE get weak and she falls to the ground. She denies any falls recently but pt has some memory issues and cannot say for sure when the last time she fell was. - PT evaluation CAD/Hx of [place] - Hold BB/Plavix for now until results of MRI are reviewed HTN - Holding BP meds for now - Monitor - Clonidine PRN for systolic BP over 220 Hyperlipidemia - Resume home meds GERD - PPI (2) CAD (coronary artery disease) ICD Codes: I25.10 - Atherosclerotic heart disease of [place] coronary artery without angina pectoris Status: Acute (3) Hypertension ICD Codes: I10 - Essential (primary) hypertension Status: Acute (4) Hyperlipidemia ICD Codes: E78.5 - Hyperlipidemia, unspecified Status: Acute (5) GERD (gastroesophageal reflux disease) ICD Codes: K21.9 - Gastro-esophageal reflux disease without esophagitis Status: Acute (6) Diastolic dysfunction ICD Codes: I51.9 - Heart disease, unspecified Status: Chronic Assessment and Plan Patient examined. Assessment and plan formulated with Consuelo Fontana PA-C. I agree with the above. 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 most likely local atherosclerosis and ischemic cva. no proof of embolic source but pt/daughter not interested in anticoagulation pt is high fall risk and has been falling alot at home will increase asa and cont plavix pt and family want snf tomorrow. Consuelo Fontana Apr 03, 2017 08:05 Tomi Ji MD Apr 03, 2017 17:08
[2017-04-03] MEDS: SODIUM CHLOR 0.9% 1000 ML INJ 1,000 ML IV SCH ×2 (08:07→23:11)
[2017-04-03] MEDS: INSULIN ASPART SUPPLEMENTAL SCALE SQ SCH ×3 (08:08→17:00)
[2017-04-03] MEDS ORDERED: cloNIDine HCL 0.1 MG TAB PO PRN (08:45)
--- NOTE | 2017-04-03 08:55 | RADRPT ---
EXAM DATE/TIME: 04/03/2017 08:02 [facility] COMPARISON: No previous studies available for comparison. INDICATIONS : Transischemic attack. MEDICAL HISTORY : Hypercholesterolemia. Hypertension. RI. CAD. CHF. COPD. GERD. Hiatel hernia. SURGICAL HISTORY : Hysterectomy. Coronary stent. ENCOUNTER: Initial ACUITY: 1 day PAIN SCORE: 0/10 LOCATION: Bilateral neck PEAK SYSTOLIC VELOCITIES (cm/sec): ICA/CCA RATIO: Right: 1.8 Left: 1.3 ICA: Right: 155 Left: 119 CCA: Right: 85 Left: 95 ECA: Right: 125 Left: 149 VERTEBRAL: Right: 70 antegrade Left: 66 antegrade Elevated flow velocities and ICA/CCA ratios have been found to correlate with increased degrees of vessel stenosis, calculated as percentage of diameter relative to a normal segment of distal ICA/CCA FINDINGS: RIGHT CAROTID: No significant stenosis is visualized. Moderate plaque. The waveforms are within normal limits. LEFT CAROTID: No significant stenosis is visualized. Moderate plaque. The waveforms are within normal limits. VERTEBRAL ARTERIES: Antegrade flow is seen in both vertebral arteries. MISCELLANEOUS: None. CONCLUSION: 1. 50-59% stenosis within the right internal carotid artery. 2. No hemodynamically significant stenosis on the left. Brayan Redd MD on April 03, 2017 at 8:51 Board Certified Radiologist. This report was verified electronically.
[2017-04-03] MEDS: PANTOPRAZOLE SOD 40 MG DELAYED RELEASE TAB PO SCH (08:59)
[2017-04-03] MEDS ORDERED: NON-FORMULARY DRUG (Fish Oil-Cholecalciferol (Omega-3 Fish Oil/Vitamin) 1 CAP) PO SCH (09:00)
[2017-04-03] MEDS ORDERED: LORazepam 2 MG/ML VIAL IV PUSH ONE (10:00)
--- NOTE | 2017-04-03 12:08 | EKG ---
Date Performed: 04/03/2017 Time Performed: 00:34:16 PTAGE: 89 years EKG: SINUS BRADYCARDIA WITH FIRST DEGREE AV BLOCK MARKED LEFT AXIS DEVIATION PATTERN CONSISTENT WITH PULMONARY DISEASE MODERATE VOLTAGE CRITERIA FOR LVH, CONSIDER NORMAL VARIANT ABNORMAL ECG Since the prior tracing, there has been no significant change PREVIOUS TRACING : 12/27/2016 04.15 DOCTOR: Simran Robles Interpretating Date/Time 04/03/2017 12:07:32
--- NOTE | 2017-04-03 13:22 | RADRPT ---
EXAM DATE/TIME: 04/03/2017 12:50 [facility] COMPARISON: CT BRAIN W/O CONTRAST, April 03, 2017, 0:43. INDICATIONS : TIA. Right hand numbness. MEDICAL HISTORY : Hypertension. Diabetes mellitus type 2. SURGICAL HISTORY : Rotator cuff, right. Hysterectomy. Carpal tunnel syndrome. Knee surgery. Finger surgery. Cataracts. ENCOUNTER: Subsequent ACUITY: 1 day PAIN SCORE: 0/10 LOCATION: head. TECHNIQUE: Multiplanar, multisequence MRI of the brain was performed without contrast. FINDINGS: CEREBRUM: Acute lacunar infarct left thalamus. The ventricles are normal for age. No evidence of midline shift , mass lesion, hemorrhage or acute infarction. No extraaxial fluid collections are seen. The pituit jemima gland and suprasellar cistern are normal in configuration. WHITE MATTER: Scattered T2 bright signal abnormalities are seen in the white matter and brainstem. POSTERIOR FOSSA: The cerebellum is intact. The 4th ventricle is midline. The cerebellopontine angle is unremarkable. The cerebellar tonsils are normal in position. DIFFUSION IMAGING: Focal restricted diffusion seen, consistent with acute infarction. EXTRACRANIAL: The visualized portions of the orbits and paranasal sinuses are unremarkable. CONCLUSION: 1. Acute lacunar infarct left thalamus. 2. Cerebral atrophy and chronic ischemic small vessel vasculopathy. Brayan Redd MD on April 03, 2017 at 13:17 Board Certified Radiologist. This report was verified electronically.
[2017-04-03] MEDS ORDERED: ASPIRIN 325 MG TAB PO ONE (17:15)
[2017-04-03] MEDS ORDERED: CLOPIDOGREL 75 MG TAB PO ONE (17:15)
[2017-04-03] MEDS ORDERED: ATORVASTATIN 40 MG TAB PO SCH (21:00)
[2017-04-04] MEDS: INSULIN ASPART SUPPLEMENTAL SCALE SQ SCH ×3 (00:27→13:48)
[2017-04-04 00:35] VITALS: BP 128/82; PULSE 85; RESP 18; TEMP 97.8
[2017-04-04 04:22] VITALS: BP 179/76; PULSE 60; RESP 18; TEMP 97.8; O2SAT 96
[2017-04-04 07:00] VITALS: PULSE 63
[2017-04-04 07:13] LABS: AUTOMATED NEUTROPHIL # 5.5 TH/MM3 (1.8-7.7); BASOPHIL % 0.6 % (0.0-2.0); EOSINOPHIL # 0.3 TH/MM3 (0-0.4); EOSINOPHIL % 3.3 % (0.0-4.0); HEMATOCRIT 38.1 % (35.0-46.0); HEMOGLOBIN 13.6 GM/DL (11.6-15.3); LYMPHOCYTE # 1.6 TH/MM3 (1.0-4.8); MEAN CORPUSCULAR HEMOGLOBIN 32.2 PG (27.0-34.0); MEAN CORPUSCULAR HGB CONC 35.8 % (32.0-36.0); MEAN PLATELET VOLUME 7.4 FL (7.0-11.0); MONO % 6.9 % (0.0-8.0); MONOCYTE # 0.5 TH/MM3 (0-0.9); NEUT % 69.2 % (16.0-70.0); PLATELET COUNT 220 TH/MM3 (150-450); RED BLOOD COUNT 4.24 MIL/MM3 (4.00-5.30)
[2017-04-04 07:42] LABS: BICARBONATE 25.2 MEQ/L (21.0-32.0); CALCIUM 8.4 MG/DL (8.5-10.1); CREATININE 0.8 MG/DL (0.50-1.00); MAGNESIUM 1.9 MG/DL (1.5-2.5)
--- NOTE | 2017-04-04 08:00 | HHI.PR ---
Subjective Remarks No new complaints Still with some right handed numbness and tingling Objective Vitals Vital Signs Date Time Temp Pulse Resp B/P (MAP) Pulse Ox O2 Delivery O2 Flow Rate FiO2 04/04/17 04:22 97.8 60 18 179/76 (110) 96 04/04/17 00:35 97.8 85 18 128/82 (97) 04/03/17 20:00 97.2 72 18 165/67 (99) 95 04/03/17 15:09 97.8 62 20 177/77 (110) 97 04/03/17 13:49 65 18 175/77 (109) 96 04/03/17 12:00 76 16 186/76 (112) 97 04/03/17 10:00 58 15 169/70 (103) 96 Room Air 04/04/17 04/04/17 04/05/17 15:00 23:00 07:00 Intake Total 200 ml Balance 200 ml Intake Oral 200 ml Result Diagram: 04/04/1762404/04/17 0625 Other Results Laboratory Tests Test 04/03/17 01:00 04/03/17 02:15 04/04/17 06:25 White Blood Count 7.5 TH/MM3 8.0 TH/MM3 Red Blood Count 4.21 MIL/MM3 4.24 MIL/MM3 Hemoglobin 13.4 GM/DL 13.6 GM/DL Hematocrit 38.7 % 38.1 % Mean Corpuscular Volume 92.0 FL 90.0 FL Mean Corpuscular Hemoglobin 31.7 PG 32.2 PG Mean Corpuscular Hemoglobin Concent 34.5 % 35.8 % Red Cell Distribution Width 14.0 % 14.0 % Platelet Count 221 TH/MM3 220 TH/MM3 Mean Platelet Volume 7.3 FL 7.4 FL Neutrophils (%) (Auto) 61.0 % 69.2 % Lymphocytes (%) (Auto) 26.3 % 20.0 % Monocytes (%) (Auto) 8.3 % 6.9 % Eosinophils (%) (Auto) 3.1 % 3.3 % Basophils (%) (Auto) 1.3 % 0.6 % Neutrophils # (Auto) 4.6 TH/MM3 5.5 TH/MM3 Lymphocytes # (Auto) 2.0 TH/MM3 1.6 TH/MM3 Monocytes # (Auto) 0.6 TH/MM3 0.5 TH/MM3 Eosinophils # (Auto) 0.2 TH/MM3 0.3 TH/MM3 Basophils # (Auto) 0.1 TH/MM3 0.0 TH/MM3 CBC Comment DIFF FINAL DIFF FINAL Differential Comment Prothrombin Time 10.2 SEC Prothromb Time International Ratio 1.0 RATIO Activated Partial Thromboplast Time 47.9 SEC Blood Urea Nitrogen 18 MG/DL 13 MG/DL Creatinine 0.93 MG/DL 0.80 MG/DL Random Glucose 195 MG/DL 149 MG/DL Total Protein 6.8 GM/DL Albumin 3.7 GM/DL Calcium Level 8.6 MG/DL 8.4 MG/DL Magnesium Level 1.9 MG/DL 1.9 MG/DL Alkaline Phosphatase 111 U/L Aspartate Amino Transf (AST/SGOT) 12 U/L Alanine Aminotransferase (ALT/SGPT) 20 U/L Total Bilirubin 0.5 MG/DL Sodium Level 141 MEQ/L 142 MEQ/L Potassium Level 4.0 MEQ/L 3.8 MEQ/L Chloride Level 107 MEQ/L 109 MEQ/L Carbon Dioxide Level 27.3 MEQ/L 25.2 MEQ/L Anion Gap 7 MEQ/L 8 MEQ/L Estimat Glomerular Filtration Rate 57 ML/MIN 68 ML/MIN Total Creatine Kinase 150 U/L Creatine Kinase MB LESS THAN 0.5 NG/ML Troponin I LESS THAN 0.02 NG/ML B-Type Natriuretic Peptide 43 PG/ML Lipase 70 U/L Urine Color LIGHT-YELLOW Urine Turbidity CLEAR Urine pH 6.5 Urine Specific [place] 1.007 Urine Protein NEG mg/dL Urine Glucose (UA) NEG mg/dL Urine Ketones NEG mg/dL Urine Occult Blood NEG Urine Nitrite NEG Urine Bilirubin NEG Urine Urobilinogen LESS THAN 2.0 MG/DL Urine Leukocyte Esterase NEG Urine WBC LESS THAN 1 /hpf Urine Squamous Epithelial Cells 2 /hpf Urine Bacteria RARE /hpf Microscopic Urinalysis Comment CULT NOT INDICATED Imaging Last Impressions Head CT 04/03/1733 Signed Impressions: Service Date/Time: Monday, April 03, 2017 00:43 - CONCLUSION: 1. No acute findings in the brain. 2. Stable moderate severity atrophy. Lorenzo Howe MD Chest X-Ray 04/03/1733 Signed Impressions: Service Date/Time: Monday, April 03, 2017 00:45 - CONCLUSION: The lungs are clear. Lorenzo Howe MD Cervical Spine CT 04/03/17 0034 Signed Impressions: Service Date/Time: Monday, April 03, 2017 00:43 - CONCLUSION: 1. 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 2. No evidence of fracture and no spondylolisthesis seen. Lorenzo Howe MD Carotid Artery Ultrasound 04/03/17 0000 Signed Impressions: Service Date/Time: Monday, April 03, 2017 08:02 - CONCLUSION: 1. 50-59% % stenosis within the right internal carotid artery. 2. No hemodynamically significant stenosis on the left. Brayan Redd MD Brain MRI 04/03/17 0000 Signed Impressions: Service Date/Time: Monday, April 03, 2017 12:50 - CONCLUSION: 1. Acute lacunar infarct left thalamus. 2. Cerebral atrophy and chronic ischemic small vessel vasculopathy. Brayan Redd MD Objective Remarks General: NAD, AAOx3 Chest: CTA bilaterally Cardiac: Regular Abd: +BS, soft ND/NT Ext: No edema A/P Problem List: (1) CVA (cerebral vascular accident) ICD Codes: I63.9 - Cerebral infarction, unspecified Plan: Acute CVA Right hand paresthesia - Pt is an 89 y/o female with CAD/hx of [place], unstable angina, diastolic dysfunction, hypertension, hyperlipidemia, and GERD. - She presented to the ED at [facility] on 04/03/17 with complaints of numbness to the right hand from the wrist all the way to the fingers in a glove distribution that reportedly began sometime in the afternoon yesterday. No reported weakness of her arm associated with this. She reports having a headache yesterday across her forehead and in the back of her head. - Head CT in the ED was negative for any acute changes and only noted stable moderate severity atrophy. - CT Neck noted advanced discogenic degenerative changes and facet joint hypertrophy with neural foraminal stenosis and osteophytes and no evidence of fracture and no spondylolisthesis seen. - Carotid US --> 50-59% stenosis within the right internal carotid artery. No hemodynamically significant stenosis on the left - MRI Brain --> Acute lacunar infarct left thalamus. Cerebral atrophy and chronic ischemic small vessel vasculopathy. - Telemetry without any evidence of A. fib - Plavix resumed on 04/03 - ASA dose increased to 325mg po daily on 04/03 and this will be continued. Discussed with the pt yesterday evening as to whether or not the pt would be agreeable to starting on a different anticoagulant other than ASA and she does not want to start anything new (specifically Coumadin). - PT recommended SNF vs. HHC and pt and her daughter feel SNF would be appropriate given her previous falls at home - OT evaluation is ordered - Resume home BP meds this morning - Plan for discharge to SNF later today - Supportive care LE weakness, chronic - She reports having bilateral lower extremity weakness which is a chronic and progressive problem. - Pt states that she has fallen at home a few times recently and denies any LOC. - She states that she uses a walker when ambulating in the house but occasionally her LE get weak and she falls to the ground. She denies any falls recently but pt has some memory issues and cannot say for sure when the last time she fell was. - Pt planned for SNF at discharge CAD/Hx of [place] - Resume BB this morning - Plavix and ASA HTN - Resume BP meds - Monitor - Clonidine PRN for systolic BP over 220 Hyperlipidemia - Resume home meds GERD - PPI (2) Numbness and tingling in right hand ICD Codes: R20.0 - Anesthesia of skin; R20.2 - Paresthesia of skin Status: Acute (3) CAD (coronary artery disease) ICD Codes: I25.10 - Atherosclerotic heart disease of [place] coronary artery without angina pectoris Status: Acute (4) Hypertension ICD Codes: I10 - Essential (primary) hypertension Status: Acute (5) Hyperlipidemia ICD Codes: E78.5 - Hyperlipidemia, unspecified Status: Acute (6) GERD (gastroesophageal reflux disease) ICD Codes: K21.9 - Gastro-esophageal reflux disease without esophagitis Status: Acute (7) Diastolic dysfunction ICD Codes: I51.9 - Heart disease, unspecified Status: Chronic Assessment and Plan Patient examined. Assessment and plan formulated with Consuelo Fontana PA-C. I agree with the above. acute cva. atherosclerosis. no evidence of afib. pt and family would NOT want anticoagulation anyway and so we can only use asa/plavix. right hand parasthesia and some weakness. has been off balance and falling at home. They would like snf and will d/c to snf today. they don't need echo or flp as it will not change there therapy. Problem Qualifiers (1) CVA (cerebral vascular accident): Qualified Codes: I63.9 - Cerebral infarction, unspecified Consuelo Fontana Apr 04, 2017 08:00 Tomi Ji MD Apr 04, 2017 14:38
[2017-04-04] MEDS ORDERED: ASA325 PO (08:02)
--- NOTE | 2017-04-04 08:03 | HHI.DCPOC ---
Discharge Care Plan Diagnosis: (1) CVA (cerebral vascular accident) (2) Numbness and tingling in right hand (3) Weakness of both legs (4) Diastolic dysfunction (5) CAD (coronary artery disease) (6) Hypertension (7) Hyperlipidemia (8) GERD (gastroesophageal reflux disease) Goals to Promote Your Health * To prevent worsening of your condition and complications * To maintain your health at the optimal level Directions to Meet Your Goals Take your medications as prescribed Follow your dietary instruction Follow activity as directed Keep your appointments as scheduled Take your immunizations and boosters as scheduled If your symptoms worsen call your PCP, if no PCP go to Urgent Care Center or Emergency Room Smoking is Dangerous to Your Health. Avoid second hand smoke Call the 24-hour hour crisis hotline for domestic abuse at [facility] Apr 04, 2017 08:03
[2017-04-04 08:19] VITALS: BP 170/79; PULSE 61; RESP 23; TEMP 97.9; O2SAT 95
[2017-04-04] MEDS ORDERED: CARVEDILOL 12.5 MG TAB PO SCH (09:00)
[2017-04-04] MEDS ORDERED: CLOPIDOGREL 75 MG TAB PO SCH (09:00)
[2017-04-04] MEDS ORDERED: FUROSEMIDE 40 MG TAB PO SCH (09:00)
[2017-04-04] MEDS ORDERED: POTASSIUM CHLORIDE 10 MEQ CAP PO SCH (09:00)
[2017-04-04] MEDS ORDERED: ASPIRIN 325 MG TAB PO SCH (09:00)
[2017-04-04] MEDS ORDERED: ACET325T15 PO (09:02)
[2017-04-04] MEDS: PANTOPRAZOLE SOD 40 MG DELAYED RELEASE TAB PO SCH (09:57)
[2017-04-04 11:47] VITALS: BP 158/70; PULSE 70; RESP 21; TEMP 98; O2SAT 96
--- NOTE | 2017-04-04 12:30 | RADRPT ---
EXAM DATE/TIME: 04/04/2017 12:09 [facility] COMPARISON: No previous studies available for comparison. INDICATIONS : Fell yesterday pain in right shoulder MEDICAL HISTORY : Hypertension. Diabetes mellitus type II. SURGICAL HISTORY : Rotator cuff right shoulder ENCOUNTER: Initial ACUITY: 2 days PAIN SCORE: 5/10 LOCATION: Right Entire shoulder FINDINGS: No definite fractures, or dislocations are identified. No definite lytic or sclerotic lesion is seen . The joint space is well maintained. IMPRESSION: Unremarkable study. Candace Cantrell MD on April 04, 2017 at 12:27 Board Certified Radiologist. This report was verified electronically.
[2017-04-04] MEDS: SODIUM CHLOR 0.9% 1000 ML INJ 1,000 ML IV SCH (13:36)
[2017-04-04 17:10] LABS: HEMOGLOBIN A1C 7.4 % (4.3-6.0)
== END 2017-04-04 16:09 | DRG 66 ==
LOC: NEPE 00:09 → NEDA 03:25 → INTOOBSV 03:25 → OBSVTOIN 03:25 → NEDH 06:43 → NEDA 13:17 → NEPHCDU 14:59
PROVIDERS: ADMIT Hospitalist; ATTEND Hospitalist
DX: I63.9 Cerebral infarction, unspecified (principal); J44.9 Chronic obstructive pulmonary disease, unspecified; R00.1 Bradycardia, unspecified; I25.10 Atherosclerotic heart disease of native coronary artery without angina pectoris; I10 Essential (primary) hypertension; E78.5 Hyperlipidemia, unspecified; M19.90 Unspecified osteoarthritis, unspecified site; G83.21 Monoplegia of upper limb affecting right dominant side; H91.90 Unspecified hearing loss, unspecified ear; I44.0 Atrioventricular block, first degree; R53.1 Weakness; K21.9 Gastro-esophageal reflux disease without esophagitis; R29.6 Repeated falls; R29.701 NIHSS score 1; M48.00 Spinal stenosis, site unspecified; Z91.81 History of falling; Z90.710 Acquired absence of both cervix and uterus; I25.2 Old myocardial infarction; Z95.5 Presence of coronary angioplasty implant and graft
CPT/HCPCS: 70450; 70551; 71045; 72125; 73030; 80048; 80053; 81001; 82550; 82552; 82948; 83036; 83690; 83735; 83880; 84484; 85025; 85610; 85730; 93005; 93880; 99285; G8987-GO; G8987-GP; G8988-GO; G8988-GP; J1815; J7030